=== PATIENT | male | born 1970 | race Caucasian/White ===

== ENCOUNTER 2017-03-09 12:51 | Inpatient (IN) | payer SELFPAY ==
[~2017-03-09] VITALS: Ht 167.6 cm; Wt 84.0 kg
[2017-03-09] VITALS (14 sets, daily range): BP systolic 98–138; BP diastolic 63–98; PULSE 69–95; RESP 12–22; Ht 167.6 cm; Wt 84.0 kg
[2017-03-09] MEDS ORDERED: SOD CHLORIDE 0.9% 1,000 ML IV STA (12:53)
[2017-03-09] MEDS ORDERED: ONDANSETRON 4 MG INJ IV STA (12:53)
[2017-03-09] MEDS ORDERED: morphine 4 MG/ML VIAL IV STA (12:53)
[2017-03-09] MEDS ORDERED: NITROGLYCERIN (IC) 100 MCG/ML INJ ONE (13:10)
[2017-03-09] MEDS ORDERED: VERAPAMIL 5 MG INJ ONE (13:10)
[2017-03-09] MEDS ORDERED: MIDAZOLAM 1 MG/ML 2 ML INJ ONE (13:10)
[2017-03-09] MEDS ORDERED: LIDOCAINE 1% (MDV) 20 ML INJ ONE (13:10)
[2017-03-09] MEDS ORDERED: FENTAnyl 50 MCG/ML VIAL ONE (13:10)
--- NOTE | 2017-03-09 13:14 | RADRPT ---
PROCEDURE: XR Chest. CLINICAL INDICATION: chest pain TECHNIQUE: Single frontal view of the chest was obtained COMPARISON: None FINDINGS: The heart and mediastinum are within normal limits. The lungs are clear. There is no pleural effusion or pneumothorax. RPTAT: AA IMPRESSION: No acute disease. .Alcides Starr MD, Date Time Electronically viewed and signed by .Alcides Starr MD, on 03/09/2017 13:13 .S/
[2017-03-09 13:15] LABS: BASOPHILS % 0.4 % (0.0-2.0); EOSINOPHILS # 0.1 10^3/ul (0.0-0.5); EOSINOPHILS % 0.6 % (0.0-7.0); HEMATOCRIT 41.5 % (42.0-52.0); HEMOGLOBIN 14.4 g/dl (14.0-18.0); LYMPHOCYTES # 2.6 10^3/ul (0.8-2.9); MEAN CORPUSCULAR HEMOGLOBIN 31.4 pg (29.0-33.0); MEAN CORPUSCULAR HGB CONC 34.7 g/dl (32.0-37.0); MEAN CORPUSCULAR VOLUME 90.4 fl (82.0-101.0); MEAN PLATELET VOLUME 10.6 fl (7.4-10.4); MONOCYTE # 0.5 10^3/ul (0.3-0.9); NEUTROPHILS % 64.3 % (39.0-77.0); PLATELET COUNT 237 10^3/UL (140-415); RED BLOOD COUNT 4.59 10^6/ul (4.70-6.10); RED CELL DISTRIBUTION WIDTH 13.5 % (11.5-14.5); WHITE BLOOD COUNT 9.1 10^3/ul (4.8-10.8)
[2017-03-09] MEDS ORDERED: BIVALIRUDIN 250MG /NS 50 ML 50 ML IVPB ONE (13:35)
[2017-03-09 13:36] LABS: ANION GAP 24 (8-16); BLOOD UREA NITROGEN 15 mg/dl (7-20); CALCIUM 9.4 mg/dl (8.4-10.2); CARBON DIOXIDE 24 mmol/L (21-31); CHLORIDE 101 mmol/L (97-110); CREATININE 0.95 mg/dl (0.61-1.24); GLUCOSE 178 mg/dl (70-220); POTASSIUM 3.4 mmol/L (3.5-5.1); SODIUM 146 mmol/L (135-144)
[2017-03-09] MEDS ORDERED: TICAGRELOR 90 MG TABLET ONE (13:50)
[2017-03-09 13:55] LABS: TROPONIN-I < 0.012 ng/ml (0.00-0.12)
--- NOTE | 2017-03-09 13:57 | ERA ---
ER Documentation Chief Complaint Date/Time DATE: 03/09/17 TIME: 13:54 Chief Complaint CP WITH STEM ON EKG HPI Patient is a 47-year-old male with hypertension and family history of coronary disease who presents with chest pain. A code STEMI was called from the field. He said the chest pain started 45 minutes ago. He is still having pain and it is left-sided chest pain. It is associated with shortness of breath. He was given aspirin nitroglycerin by paramedics. He was brought in by ambulance. He does not currently have a primary doctor. ROS All systems reviewed and are negative except as per history of present illness. PMhx/Soc History of Surgery: No Anesthesia Reaction: No Hx Neurological Disorder: No Hx Respiratory Disorders: No Hx Cardiac Disorders: Yes (HTN) Hx Psychiatric Problems: No Hx Miscellaneous Medical Probl: Yes (ARTHITIS) Hx Alcohol Use: No Hx Substance Use: No Hx Tobacco Use: Yes Smoking Status: Current every day smoker FmHx Family History: coronary disease Physical Exam Vitals Vital Signs Date Time Temp Pulse Resp B/P Pulse Ox O2 Delivery O2 Flow Rate FiO2 03/09/17 13:13 Nasal Cannula 2 03/09/17 12:55 99.0 110 22 185/93 99 Physical Exam Const: Mild distress Head: Atraumatic Eyes: Normal Conjunctiva ENT: Normal External Ears, Nose and Mouth. Neck: Full range of motion..~ No meningismus. Resp: Clear to auscultation bilaterally Cardio: Regular rate and rhythm, no murmurs Abd: Soft, non tender, non distended. Normal bowel sounds Skin: Pale and diaphoretic Back: No midline or flank tenderness Ext: No cyanosis, or edema Neur: Awake and alert Psych: Normal Mood and Affect Result Diagram: 03/09/17 1300 03/09/17 1300 Results 24 hrs Laboratory Tests Test 03/09/17 13:00 White Blood Count 9.110^3/ul Red Blood Count 4.5910^6/ul Hemoglobin 14.4g/dl Hematocrit 41.5% Mean Corpuscular Volume 90.4fl Mean Corpuscular Hemoglobin 31.4pg Mean Corpuscular Hemoglobin Concent 34.7g/dl Red Cell Distribution Width 13.5% Platelet Count 72743^3/UL Mean Platelet Volume 10.6fl Neutrophils % 64.3% Lymphocytes % 29.0% Monocytes % 5.0% Eosinophils % 0.6% Basophils % 0.4% Nucleated Red Blood Cells % 0.0/100WBC Neutrophils # (Manual) 5.910^3/ul Lymphocytes # 2.610^3/ul Monocytes # 0.510^3/ul Eosinophils # 0.110^3/ul Basophils # 0.010^3/ul Nucleated Red Blood Cells # 0.010^3/ul Sodium Level 146mmol/L Potassium Level 3.4mmol/L Chloride Level 101mmol/L Carbon Dioxide Level 24mmol/L Anion Gap 24 Blood Urea Nitrogen 15mg/dl Creatinine 0.95mg/dl Glucose Level 178mg/dl Calcium Level 9.4mg/dl Troponin I Pending Current Medications Medications (Trade) Dose Ordered Sig/[place] Route PRN Reason Start Time Stop Time Status Last Admin Dose Admin Sodium Chloride (NS) 1,000 ml @ 1,000 mls/hr Q1H STAT IV 03/09/17 12:53 03/09/17 13:52 DC 03/09/17 13:05 Morphine Sulfate (morphine) 4 mg ONCE STAT IV 03/09/17 12:53 03/09/17 12:54 DC Ondansetron HCl (Zofran Inj) 4 mg ONCE STAT IV 03/09/17 12:53 03/09/17 12:54 DC Lidocaine 20 ml 20 ml STK-MED ONCE .ROUTE 03/09/17 13:10 03/09/17 13:11 DC Heparin Sodium/ Sodium Chloride (Heparin 1000 Units/NS (A-Line)) 1,500 ml @ ud STK-MED ONCE .ROUTE 03/09/17 13:10 03/09/17 13:11 DC Fentanyl (Sublimaze) 100 mcg STK-MED ONCE .ROUTE 03/09/17 13:10 03/09/17 13:11 DC Midazolam HCl (Versed) 2 mg STK-MED ONCE .ROUTE 03/09/17 13:10 03/09/17 13:11 DC Verapamil HCl (Verapamil) 5 mg STK-MED ONCE .ROUTE 03/09/17 13:10 03/09/17 13:11 DC Nitroglycerin 1000 mcg 1,000 mcg STK-MED ONCE .ROUTE 03/09/17 13:10 03/09/17 13:11 DC Bivalirudin (Angiomax) 50 ml @ ud STK-MED ONCE IVPB 03/09/17 13:35 03/09/17 13:36 DC Ticagrelor (Brilinta) 90 mg STK-MED ONCE .ROUTE 03/09/17 13:50 03/09/17 13:51 DC Procedures/MDM EKG read by me: Rate/Rhythm: Regular rate and rhythm at a rate of 81 Intervals: Normal Impression: ST elevations across the precordial leads with hyperacute T waves consistent with STEMI Chest x-ray shows no pneumonia or pneumothorax per radiology. Patient is a 47-year-old male who presents with a code STEMI from the field. The patient had a code STEMI called at 12:35 PM. Unfortunately the paramedics did not transport the EKG to review. At 12:40 PM I spoke with Dr. Walton but the patient is still in the field at this time and I am not been able to review the EKG. At 12:48 PM the patient arrived to the ER. At 12:[address] Walton at the bedside and has decided to go to the cardiac Mrb Engineer with the patient. At 1 PM the patient was transferred to the cardiac Mrb Engineer. The patient was given aspirin nitroglycerin by paramedics and was given morphine and Zofran in the emergency department for pain. He will be admitted to the care of Dr. Scott from the panel team to the intensive care unit. Critical Care: Time: 35 minutes excluding all billable procedures. Treatments/Evaluations: Close monitoring and treatment of unstable vital signs, cardiorespiratory, and neurologic status, while maintaining tight balance of fluid, respiratory, and cardiac interventions. Departure Diagnosis: Primary Impression: ST elevation myocardial infarction (STEMI) Qualified Code: I21.3 - ST elevation myocardial infarction (STEMI), unspecified artery Condition: Critical ADALBERTO BHARDWAJ MD Mar 09, 2017 13:57
[2017-03-09] MEDS ORDERED: ASPIRIN 325 MG TAB ONE (14:02)
[2017-03-09] MEDS ORDERED: SOD CHLORIDE 0.9% 1,000 ML IV SCH (14:23)
--- NOTE | 2017-03-09 14:23 | SIPON ---
Date/Time of Note Date/Time of Note DATE: 03/09/17 TIME: 14:21 Operative Report Preoperative Diagnosis 1.STEMI Postoperative Diagnosis 1.obstructive cad s/p stent x 2 eith GUSTABO to LAD Operation/Procedure Performed 1.LHC 2.PTCA/stent x 2 to LAD Anesthesia Type: moderate sedation Estimated Blood Loss: minimal Transfusion Required: no Specimen: none Grafts/Implants: none Complications: no OSVALDO VERAS Mar 09, 2017 14:23
[2017-03-09] MEDS ORDERED: OXYCODONE/ACETAMINOPHEN (5/325) TAB PO PRN (14:30)
[2017-03-09] MEDS ORDERED: AL HYDROX/MG HYDROX/SIMETH 30 ML CUP PO PRN (14:30)
--- NOTE | 2017-03-09 15:34 | CONS ---
DATE OF ADMISSION: 03/09/2017 DATE OF CONSULTATION: 03/09/2017 REASON FOR CONSULTATION: Acute myocardial infarction. HISTORY OF PRESENT ILLNESS: Mr. Mckenzie is a 47-year-old male with history of hypertension, dyslipidemia, prior tobacco intake, who initially presented with complaints of substernal chest pain described as a pressure-like sensation while doing some work. The patient presents today with associated post shortness of breath and subsequently 911 was called. A STEMI was called en route. The patient's EKG was concerning for ST elevation OK. Upon arrival, the patient appears diaphoretic with ongoing chest pain and shortness of breath. The patient's EKG here is concerning for possible anterior OK with heart rate of 81. The patient has been treated with aspirin and has now been taken emergently to the cardiac garden labourer for left heart catheterization. PAST MEDICAL HISTORY: As above in HPI. MEDICATION: Unknown antihypertensive medication. ALLERGIES: NO KNOWN DRUG ALLERGIES. SOCIAL HISTORY: Remote tobacco, quit times most years. Social EtOH. No illicit drug use. FAMILY HISTORY: No history of sudden cardiac or early CAD. REVIEW OF SYSTEMS: As above in HPI. CONSTITUTIONAL: No fevers or chills. RESPIRATORY: Shortness of breath. CARDIOVASCULAR: Chest pain. GASTROINTESTINAL: No vomiting. GENITOURINARY: No hematuria. MUSCULOSKELETAL: Degenerative joint disease. PSYCH: The patient has depression. NEUROLOGIC: No CVA. ENDOCRINE: No PHYSICAL EXAMINATION: VITAL SIGNS: Blood pressure 141/96, afebrile, pulse is 78, satting 98 percent. GENERAL: The patient is alert, awake, complaining of shortness of breath and chest pain. NECK: JVP approximately 9 cm of water. LUNGS: Fair air movement throughout. HEART: Regular rate and rhythm. Normal S1, S2. A 1/6 systolic murmur. Nondisplaced PMI. ABDOMEN: Positive bowel sounds. Soft. EXTREMITIES: No edema, 1+ pulses bilateral posterior. LABORATORY: Labs are pending at time of dictation. Imaging has just taken and results are pending at the time of dictation. ECG is stated as above. IMPRESSION: 1. Acute ST-elevation myocardial infarction. 2. Chest pain. 3. Hypertension. 4. Dyslipidemia. 5. Remote tobacco. RECOMMENDATIONS: 1. The patient has been treated with aspirin. 2. Patient will undergo left heart catheterization with possible PTCA and stent placement with further recommendations made at the completion of this emergent study. Dictated By: Elmer Walton MD /tyron/ingrid /Document#: [id number] CC: Juan Amaya MD;*[facility]*
[2017-03-09] MEDS ORDERED: POTASSIUM CHLORIDE (SR) 20 MEQ TAB PO STA (16:12)
--- NOTE | 2017-03-09 17:14 | RADRPT ---
Vent Rate: 73 bpm RR Interval: 0 msec MS Interval: 144 msec QRS Duration: 96 msec QT Interval: 400 msec QTC Interval: 440 msec P-R-T Mastic: 59 - -26 - 47 degrees Normal sinus rhythm Septal infarct , age undetermined Abnormal ECG Electronically Signed By: Douglas Gustafson [id number]
[2017-03-09] MEDS ORDERED: NACL 0.9% 3 ML SYG IV SCH (17:30)
[2017-03-09] MEDS ORDERED: ALBUTEROL/IPRATROPIUM (NEB) 3 ML AMP HHN PRN (17:30)
[2017-03-09] MEDS ORDERED: LORAZEPAM 0.5 MG TAB PO PRN (17:30)
[2017-03-09] MEDS ORDERED: ACETAMINOPHEN 325 MG TAB PO PRN (17:30)
[2017-03-09] MEDS ORDERED: MAGNESIUM HYDROXIDE 30ML CUP PO PRN (17:30)
[2017-03-09] MEDS ORDERED: DOCUSATE SODIUM 100 MG CAP PO PRN (17:30)
[2017-03-09] MEDS ORDERED: hydrALAzine 20 MG INJ IV PRN (17:30)
[2017-03-09] MEDS ORDERED: NA PHOSPHATE/BIPHOS 133 ML ENEMA PR PRN (17:30)
[2017-03-09] MEDS ORDERED: ONDANSETRON 4 MG INJ IV PRN ×2 (17:30)
[2017-03-09] MEDS: NITROGLYCERIN (SL) 0.4 MG TAB SL PRN ×2 (17:54→18:27)
--- NOTE | 2017-03-09 18:24 | CARRPT ---
DATE OF PROCEDURE: 03/09/2017 TYPE OF PROCEDURES: 1. Left heart catheterization. 2. Coronary angiography. 3. Percutaneous transluminal coronary angioplasty with placement of [place] drug-eluting stents times 2. Two ostial proximal LAD 3.0 x 22 mm and 3.0 x 12 mm. ATTENDING PHYSICIAN: Dr. Elmer Walton. REFERRING PHYSICIAN: Dr. Amaya, Emergency Department. INDICATION: ST elevation myocardial infarction. ANESTHESIA: Conscious and local. BRIEF HISTORY AND HOSPITAL COURSE: Mr. Mckenzie is a 47-year-old male, with history of hypertension, dyslipidemia, who initially had complaints of substernal chest pain while working. The patient underwent EKG revealing hyperacute peaked T-waves in the anterolateral precordial leads. Subsequent to these findings, the patient was given aspirin and brought to the cardiac cath laboratory in order to undergo left heart catheterization. He has possibility of significant obstructive coronary disease leading to subsequent chest pain and ST-elevation myocardial infarction. PROCEDURE: After informed consent was obtained the patient brought to the [facility] Cardiac Staff Trainer where his right radial area was prepped and draped in the usual sterile fashion. 2 percent lidocaine was infiltrated into the right radial area in order to achieve adequate local anesthesia. Using the modified Seldinger technique, the radial artery was cannulated and a 6-Thai arterial sheath was placed. A 6-Thai JR4 catheter was used to cath to the right coronary artery to ostium with contrast injection. We also used the right coronary artery system to obtain. The JR 4 was removed over the guidewire and a 6-Thai XD LAD guide was used to cath the left main coronary ostium with contrast injection, multiple views left coronary arterial system were obtained. At this time findings of 100 percent occlusion of the patient's proximal ostial LAD we moved directly into instrument procedure. The patient was given Angiomax bolus continues infusion in addition to the radial cocktail he received a 2.5 mg of verapamil and 200 of nitroglycerin. Subsequent at this time a 0.014 balanced middleweight guidewire was passed distal to the lesion in the LAD. The lesion was treated with a 2.5 x 12 mm balloon up to 14 atmospheres. Restoring DORINDA-3 flow and the lesion was then stented with a 3.0 x 22 mm drug-eluting stent placed at the ostium extending back into the lesion and post dilated with stent reaching to 18 atmospheres x2. Subsequently, a second stent was then added just distal to this, 1-2 mm overlap at 3.0 x 12 mm. It was once again deployed at 18 atmospheres times 2. The stent overlap zone was then post dilated at 18 atmospheres and the stent delivery balloon was removed. Followup angiograms obtained after deployment of both stents revealing now DORINDA-3 flow throughout the vessel. No signs of complication including perforation or dissection. Additionally, it he has noticed that there was a diagonal that bifurcated midway through the stent that had a 90 percent lesion that we had wired prior to this and did balloon angioplasty with a 2. 0 x 12 mm balloon. Improving the size of it and this did remain patent after stenting. Subsequently at this time the interventional guidewires removed and interventional guide and 6-Thai pigtail was passed down the ascending aorta, left ventricular end-diastolic pressure was measured and pullback across the aortic valve to assess for significant gradient, which there was not. Subsequently completed the procedure. There were no known complications. FINDINGS: 1. Core angiography, right coronary artery proximally is a 3.5 mm vessel has a proximal 30 percent stenosis. Mid body there is a 30 percent stenosis. The remainder of the right coronary artery is free of significant focal stenosis, dominant vessel, and gives off a 2 mm PDA and a 3.5 mm posterolateral branch had several daughter branch with mild irregularities up to 30 percent. The patient's left main 4 mm, circumflex with no stenosis. Circumflex proximally is a 3 mm vessel has an ostial 30 to 40 percent stenosis. The remainder of the circ is free of significant focal stenosis. There is a mid branching obtuse marginal 3 mm vessel with no significant focal stenosis and a distal branching obtuse marginal 2.5 mm with no significant focal stenosis. The circumflex appears to be a codominant vessel and therefore gives off a small left-sided PDA 2 mm with no significant focal stenosis. The patient's LAD is a 3 mm vessel and shortly after its takeoff is 100 percent occluded. Prior to PTCA and stent placement the patient has had 100 percent occlusion of the proximal ostial LAD. Post PTCA and stent placement the patient had no evidence of occlusion. DORINDA 3 flow throughout the vessel. No signs of complication including perforation or dissection. It should be noted that there is a diagonal that bifurcates to the very proximal portion LAD that throughout the procedure had a 90 percent stenosis and underwent PTCA and stent placement with restenosis of approximately 50 percent post stent and the patient did have plaque shift but this vessel continued to remain widely patent. 2. PTCA and stent placement prior to PTCA in the diagonal. The patient had also 89 percent stenosis, post PTCA placement residual 34 percent stenosis after stenting. Patient did suffer plaque shift in the residual approximately 60 to 70 percent stenosis, but excellent flow throughout the vessel. TOTAL FLUOROSCOPY TIME: 15.3 minutes. TOTAL CONTRAST: 200 cc. IMPRESSION: 1. Single-vessel obstructive coronary disease involving 100 percent occlusion of the patient's proximal ostial left anteriora descending (LAD) status post successful percutaneous transluminal coronary angioplasty (PTCA) and stent placement times 2 with drug- eluting stents. 2. Elevated left heart filling pressures, 23/24. No left ventricular (LV) gradient due to elevated left ventricular developed pressure (LVDP). 3. No significant stenosis or gradient. RECOMMENDATIONS: In light of procedure and findings at time would: 1. Maintain patient on aspirin 81 mg 1 tab p.o. daily indefinitely. 2. Brilinta 90 mg 1 tab p.o. b.i.d. times least 1 year. 3. management. 4. Aggressive risk factor reduction. 5. Patient will be admitted to the ICU for post procedure and managing symptoms. ADDENDUM: The patient received Brilinta 180 mg x 1 and aspirin 325 mg x1 at the conclusion of the procedure. Dictated By: Elmer Walton MD /tyron/mayo /Document#: [id number]
--- NOTE | 2017-03-09 18:33 | HP ---
Date/Time of Note Date/Time of Note DATE: 03/09/17 TIME: 17:54 Assessment/Plan VTE Prophylaxis VTE Prophylaxis Intervention: heparin Lines/Catheters IV Catheter Type (from Nrs): Peripheral IV Assessment/Plan Chief Complaint/Hosp Course Assessment and plan: 47-year-old male coming in with chest pain and ST elevation MD, status post left heart cath with 2 drug-eluting stents to the LAD 1. ST elevation MD: Again status post 2 drug-eluting stent placement to LAD blockage. -Follow-up post cath recommendations, new aspirin and Brilinta, high-dose statin, follow-up cardiology recommendations. Pain control and nausea control with medicines and antiemetics. 2. HTN: See #1, continue current cardiac medications 3. Smoking history: Counseled on cessation 4. Cholesterol: Continue statin Critical care time spent on patient care today 45 minutes Problems: HPI/ROS Admit Date/Time Admit Date/Time Mar 09, 2017 at 13:15 Hx of Present Illness 47-year-old male past medical history of hypertension, dyslipidemia, prior tobacco intake, who initially presented with complaints of substernal chest pain described as a pressure-like sensation while doing some work earlier today. The patient presents today with associated post shortness of breath and subsequently 911 was called. Stated the pain was substernal in nature, radiated to the left arm, increasing in severity. Patient decided to call 911, and a STEMI was called en route. The patient's EKG was concerning for ST elevation MD. Upon arrival, the patient appears diaphoretic with ongoing chest pain and shortness of breath. EKG performed in the ER was concerning for possible anterior MD with heart rate of 81. The patient received aspirin and take emergently to the cardiac industrial laborer for left heart catheterization. 2 cardiac stents were placed to the LAD, and now patient is in the intensive care unit recovering. PMH/Family/Social Past Surgical History Past Surgical Hx: no surgical history Family History Significant Family History: other (Mother had bypass surgery, smoker, diabetes) Social History Alcohol Use: none Smoking Status: Former smoker Exam/Review of Systems Vital Signs Vitals Vital Signs Date Time Temp Pulse Resp B/P Pulse Ox O2 Delivery O2 Flow Rate FiO2 03/09/17 17:30 75 15 120/86 100 Room Air 03/09/17 16:00 97.8 03/09/17 13:13 2 Exam Exam GENERAL: The patient is alert, awake, complaining of shortness of breath and chest pain. HEENT: Pupils equal round reactive to light extraocular muscles intact NECK: Supple LUNGS: Clear to auscultation bilaterally HEART: Regular rate and rhythm. Normal S1, S2. A 1/6 systolic murmur. Nondisplaced PMI. ABDOMEN: Positive bowel sounds. Soft. EXTREMITIES: No edema, 1+ pulses bilateral posterior. Neuro: No focal deficits Labs Result Diagram: 03/09/17 1300 03/09/17 1300 Medications Medications Current Medications Aspirin (Halfprin) 81 mg DAILY PO ; Start 03/10/17 at 09:00 Ticagrelor (Brilinta) 90 mg BID PO ; Start 03/09/17 at 21:00 Acetaminophen (Tylenol Tab) 650 mg Q4H PRN PO NON-CARDIAC PAIN LEVEL 1-3; Start 03/09/17 at 14:30 Oxycodone/ Acetaminophen (Percocet (5/ 325)) 1 tab Q4H PRN PO REPORTED NON- CARDIAC PAIN 4-7; Start 03/09/17 at 14:30 Al Hydrox/Mg Hydrox/ Simethicone 30 ml 30 ml Q4H PRN PO GASTROINTESTINAL UPSET ; Start 03/09/17 at 14:30 Sodium Chloride (NS) 1,000 ml @ 75 mls/hr [id number] IV Last administered on 03/09t 15:39; Admin Dose 75 MLS/HR; Start 03/09/17 at 14:23; Stop 03/10/17 at 03: 42 Ondansetron HCl (Zofran Inj) 4 mg Q6H PRN IV NAUSEA AND/OR VOMITING Last administered on 03/09/17t 17:20; Admin Dose 4 MG; Start 03/09/17 at 17:30 Ondansetron HCl (Zofran Inj) 4 mg Q6H PRN IV NAUSEA AND/OR VOMITING; Start at 17:30 Acetaminophen (Tylenol Tab) 650 mg Q6H PRN PO PAIN LEVEL 1-3 OR FEVER; Start at 17:30 Acetaminophen/ Hydrocodone Bitart (Eden (5/325)) 1 tab Q6H PRN PO MODERATE PAIN LEVEL 4-6; Start 03/09/17 at 17:30 Morphine Sulfate (morphine) 2 mg Q4H PRN IV SEVERE PAIN LEVEL 7-10; Start 03/09 at 17:30 Docusate Sodium (Colace) 100 mg Q12H PRN PO CONSTIPATION; Start 03/09/17 at 17: 30 Magnesium Hydroxide (Milk Of Mag) 30 ml DAILY PRN PO CONSTIPATION; Start at 17:30 Sodium Biphosphate/ Sodium Phosphate (Fleet Enema) 133 ml DAILY PRN PA CONSTIPATION; Start 03/09/17 at 17:30 Heparin Sodium (Porcine) (Heparin (5000 Units/0.5 ml)) 5,000 unit Q12 SC ; Start 03/09/17 at 21:00 Lorazepam (Ativan) 0.5 mg Q6H PRN PO ANXIETY; Start 03/09/17 at 17:30 Hydralazine HCl (Apresoline) 10 mg Q6H PRN IV ELEVATED BLOOD PRESSURE; Start at 17:30 Nitroglycerin (Nitroglycerin (Sl Tab) 0.4 Mg) 1 tab Q5M PRN SL ANGINA; Start at 17:30 ANTWON FUCHS Mar 09, 2017 18:05
[2017-03-09] MEDS: HYDROCODONE/APAP (5/325) TAB PO PRN (19:48)
[2017-03-09] MEDS: HEPARIN 5,000 UNIT/0.5 ML VIAL SC SCH (21:02)
[2017-03-09] MEDS: TICAGRELOR 90 MG TABLET PO SCH (21:03)
[2017-03-09] MEDS: morphine 2 MG INJ IV PRN (21:11)
[2017-03-10] VITALS (43 sets, daily range): BP systolic 91–142; BP diastolic 66–114; PULSE 88–133; RESP 12–35
[2017-03-10] MEDS: morphine 2 MG INJ IV PRN (06:55)
[2017-03-10] MEDS: ASPIRIN (EC) 81 MG TAB PO SCH (08:15)
[2017-03-10] MEDS: TICAGRELOR 90 MG TABLET PO SCH ×2 (08:16→21:13)
[2017-03-10] MEDS: HEPARIN 5,000 UNIT/0.5 ML VIAL SC SCH ×2 (08:19→21:27)
--- NOTE | 2017-03-10 10:10 | PN ---
Date/Time of Note Date/Time of Note DATE: 03/10/17 TIME: 10:08 Assessment/Plan VTE Prophylaxis VTE Prophylaxis Intervention: heparin Lines/Catheters IV Catheter Type (from Nrs): Peripheral IV Assessment/Plan Chief Complaint/Hosp Course Assessment and plan: 47-year-old male coming in with chest pain and ST elevation DC, status post left heart cath with 2 drug-eluting stents to the LAD. 1. ST elevation DC: Again status post 2 drug-eluting stent placement to LAD blockage. Denies chest pain presently, but having some mild tachycardia -Follow-up post cath recommendations, new aspirin and Brilinta, high-dose statin, follow-up cardiology recommendations. Pain control and nausea control with medicines and antiemetics. -Check blood ethanol level 2. HTN: See #1, continue current cardiac medications 3. Smoking history: Counseled on cessation 4. Cholesterol: Continue statin Critical care time spent on patient care today 40 minutes Problems: Subjective 24 Hr Interval Summary Free Text/Dictation No acute events overnight, denies chest pain. Exam/Review of Systems Vital Signs Vitals Vital Signs Date Time Temp Pulse Resp B/P Pulse Ox O2 Delivery O2 Flow Rate FiO2 03/10/17 08:00 108 17 124/98 96 Room Air 03/10/17 07:30 98.5 03/10/17 02:51 21 03/09/17 13:13 2 Intake and Output 03/09/17 03/09/17 03/10/17 15:00 23:00 07:00 Intake Total 240 ml 885 ml 495 ml Output Total 250 ml 575 ml Balance 240 ml 635 ml -80 ml Exam GENERAL: The patient is alert, awake, no acute distress. HEENT: Pupils equal round reactive to light extraocular muscles intact NECK: Supple LUNGS: Clear to auscultation bilaterally HEART: Regular rate and rhythm. Normal S1,S2 ABDOMEN: Positive bowel sounds. Soft. EXTREMITIES: No edema, 1+ pulses bilateral posterior. Neuro: No focal deficits Results Result Diagram: 03/09/17 1300 03/09/17 1300 Results 24 hrs Laboratory Tests Test 03/09/17 13:00 03/09/17 19:39 03/10/17 01:02 White Blood Count 9.1 Red Blood Count 4.59 L Hemoglobin 14.4 Hematocrit 41.5 L Mean Corpuscular Volume 90.4 Mean Corpuscular Hemoglobin 31.4 Mean Corpuscular Hemoglobin Concent 34.7 Red Cell Distribution Width 13.5 Platelet Count 237 Mean Platelet Volume 10.6 H Neutrophils % 64.3 Lymphocytes % 29.0 Monocytes % 5.0 Eosinophils % 0.6 Basophils % 0.4 Nucleated Red Blood Cells % 0.0 Neutrophils # (Manual) 5.9 Lymphocytes # 2.6 Monocytes # 0.5 Eosinophils # 0.1 Basophils # 0.0 Nucleated Red Blood Cells # 0.0 Sodium Level 146 H Potassium Level 3.4 L Chloride Level 101 Carbon Dioxide Level 24 Anion Gap 24 H Blood Urea Nitrogen 15 Creatinine 0.95 Glucose Level 178 Calcium Level 9.4 Troponin I < 0.012 281.000 *H 219.000 *H Free Thyroxine 1.03 Creatine Kinase 5914 H Creatine Kinase Index 2.5 2.1 Creatinine Kinase MB (Mass) 188.00 H 124.00 H Medications Medications Current Medications Aspirin (Halfprin) 81 mg DAILY PO Last administered on 03/10/17 08:15; Admin Dose 81 MG; Start 03/10/17 at 09:00 Ticagrelor (Brilinta) 90 mg BID PO Last administered on 03/10/17 08:16; Admin Dose 90 MG; Start 03/09/17 at 21:00 Acetaminophen (Tylenol Tab) 650 mg Q4H PRN PO NON-CARDIAC PAIN LEVEL 1-3; Start 03/09/17 at 14:30 Oxycodone/ Acetaminophen (Percocet (5/ 325)) 1 tab Q4H PRN PO REPORTED NON- CARDIAC PAIN 4-7; Start 03/09/17 at 14:30 Al Hydrox/Mg Hydrox/Simethicone (Mag-Al Plus) 30 ml Q4H PRN PO GASTROINTESTINAL UPSET; Start 03/09/17 at 14:30 Ondansetron HCl (Zofran Inj) 4 mg Q6H PRN IV NAUSEA AND/OR VOMITING Last administered on 03/09/17 17:20; Admin Dose 4 MG; Start 03/09/17 at 17:30 Ondansetron HCl (Zofran Inj) 4 mg Q6H PRN IV NAUSEA AND/OR VOMITING; Start at 17:30 Acetaminophen (Tylenol Tab) 650 mg Q6H PRN PO PAIN LEVEL 1-3 OR FEVER; Start at 17:30 Acetaminophen/ Hydrocodone Bitart ([place] (5/325)) 1 tab Q6H PRN PO MODERATE PAIN LEVEL 4-6 Last administered on 03/09/17 19:48; Admin Dose 1 TAB; Start at 17:30 Morphine Sulfate (morphine) 2 mg Q4H PRN IV SEVERE PAIN LEVEL 7-10 Last administered on 03/10/17 06:55; Admin Dose 2 MG; Start 03/09/17 at 17:30 Docusate Sodium (Colace) 100 mg Q12H PRN PO CONSTIPATION; Start 03/09/17 at 17: 30 Magnesium Hydroxide (Milk Of Mag) 30 ml DAILY PRN PO CONSTIPATION; Start at 17:30 Sodium Biphosphate/ Sodium Phosphate (Fleet Enema) 133 ml DAILY PRN [place] CONSTIPATION; Start 03/09/17 at 17:30 Heparin Sodium (Porcine) (Heparin (5000 Units/0.5 ml)) 5,000 unit Q12 SC Last administered on 03/10/17 08:19; Admin Dose 5,000 UNIT; Start 03/09/17 at 21:00 Lorazepam (Ativan) 0.5 mg Q6H PRN PO ANXIETY; Start 03/09/17 at 17:30 Hydralazine HCl (Apresoline) 10 mg Q6H PRN IV ELEVATED BLOOD PRESSURE; Start at 17:30 Nitroglycerin (Nitroglycerin (Sl Tab) 0.4 Mg) 1 tab Q5M PRN SL ANGINA Last administered on 03/09/17 18:27; Admin Dose 1 TAB; Start 03/09/17 at 17:30 ANTWON FUCHS Mar 10, 2017 10:10
[2017-03-10 11:45] LABS: BASOPHILS % 0.3 % (0.0-2.0); EOSINOPHILS % 0.2 % (0.0-7.0); HEMATOCRIT 42.3 % (42.0-52.0); HEMOGLOBIN 14.6 g/dl (14.0-18.0); LYMPHOCYTES # 1.1 10^3/ul (0.8-2.9); MEAN CORPUSCULAR HEMOGLOBIN 31.7 pg (29.0-33.0); MEAN CORPUSCULAR HGB CONC 34.5 g/dl (32.0-37.0); MEAN CORPUSCULAR VOLUME 91.8 fl (82.0-101.0); MEAN PLATELET VOLUME 10.1 fl (7.4-10.4); MONOCYTE # 0.7 10^3/ul (0.3-0.9); MONOCYTES % 7.1 % (0.0-11.0); NEUTROPHILS % 80.7 % (39.0-77.0); PLATELET COUNT 200 10^3/UL (140-415); RED BLOOD COUNT 4.61 10^6/ul (4.70-6.10); RED CELL DISTRIBUTION WIDTH 13.9 % (11.5-14.5); WHITE BLOOD COUNT 10.2 10^3/ul (4.8-10.8)
[2017-03-10 12:12] LABS: CHOL/HDL RATIO 5.7 RATIO; MAGNESIUM 1.9 mg/dl (1.7-2.5); PHOSPHORUS 2.5 mg/dl (2.5-4.9)
[2017-03-10 12:13] LABS: CALCIUM 9.3 mg/dl (8.4-10.2); CREATININE 0.86 mg/dl (0.61-1.24); POTASSIUM 3.5 mmol/L (3.5-5.1)
--- NOTE | 2017-03-10 12:14 | CONS ---
Date/Time of Note Date/Time of Note DATE: 03/10/17 TIME: 12:11 Assessment/Plan Assessment/Plan Chief Complaint/Hosp Course IMPRESSION: 1. Acute ST-elevation myocardial infarction s/p PTCA/stent x 2 to ostal/ proximal LAD with GUSTABO 2. Chest pain. 3. Hypertension. 4. Dyslipidemia. 5. Remote tobacco. 6. Tachuycardia-S tach REcc: -Tele transfer ok -Trend cardiac enzymes -Continue asa/brilinta and will need script at D/C -start BB -start statain -Will F/U echo Problems: Consultation Date/Type/Reason Admit Date/Time Mar 09, 2017 at 13:15 Initial Consult Date 03/09/2017 Type of Consultation: cardiology Reason for Consultation STEMI Referring Provider: ANTWON FUCHS Exam/Review of Systems Vital Signs Vitals Vital Signs Date Time Temp Pulse Resp B/P Pulse Ox O2 Delivery O2 Flow Rate FiO2 03/10/17 08:00 108 03/10/17 08:00 17 124/98 96 Room Air 03/10/17 07:30 98.5 03/10/17 02:51 21 03/09/17 13:13 2 Intake and Output 03/09/17 03/09/17 03/10/17 14:59 22:59 06:59 Intake Total 1050 ml 570 ml Output Total 250 ml 575 ml Balance 800 ml -5 ml Exam Review of Systems: CONSTITUTIONAL: No fevers, chills. PULMONARY: No sob CARDIOVASCULAR: mild chest pain with deep inspiration GASTROINTESTINAL: No nausea/vomiting. GENITOURINARY: No hematuria/dysuria. MUSCULOSKELETAL: No myagias/arthalgias. PSYCHIATRIC: The patient denies depression. NEUROLOGIC: No weakness Constitutional: alert, oriented, well developed Head: normocephalic ENMT: mucosa pink and moist Neck: jvd (8-9 cm water), supple Respiratory: clear to auscultation Cardiovascular: regular rate and rhythm Gastrointestinal: non-tender, soft Musculoskeletal: muscle tone (normal) Extremities: edema (none) Neurological: other (No focal deficits) Results Result Diagram: 03/10/17 1130 03/09/17 1300 Results 24 hrs Laboratory Tests Test 03/09/17 13:00 03/09/17 19:39 03/10/17 01:02 03/10/17 11:30 White Blood Count 9.1 10.2 Red Blood Count 4.59 L 4.61 L Hemoglobin 14.4 14.6 Hematocrit 41.5 L 42.3 Mean Corpuscular Volume 90.4 91.8 Mean Corpuscular Hemoglobin 31.4 31.7 Mean Corpuscular Hemoglobin Concent 34.7 34.5 Red Cell Distribution Width 13.5 13.9 Platelet Count 237 200 Mean Platelet Volume 10.6 H 10.1 Neutrophils % 64.3 80.7 H Lymphocytes % 29.0 11.0 L Monocytes % 5.0 7.1 Eosinophils % 0.6 0.2 Basophils % 0.4 0.3 Nucleated Red Blood Cells % 0.0 0.0 Neutrophils # (Manual) 5.9 8.2 H Lymphocytes # 2.6 1.1 Monocytes # 0.5 0.7 Eosinophils # 0.1 0.0 Basophils # 0.0 0.0 Nucleated Red Blood Cells # 0.0 0.0 Sodium Level 146 H Potassium Level 3.4 L Chloride Level 101 Carbon Dioxide Level 24 Anion Gap 24 H Blood Urea Nitrogen 15 Creatinine 0.95 Glucose Level 178 Calcium Level 9.4 Troponin I < 0.012 281.000 *H 219.000 *H Free Thyroxine 1.03 Creatine Kinase 5914 H Creatine Kinase Index 2.5 2.1 Creatinine Kinase MB (Mass) 188.00 H 124.00 H Hemoglobin A1c 6.0 H Medications Medications Current Medications Aspirin (Halfprin) 81 mg DAILY PO Last administered on 03/10/17 08:15; Admin Dose 81 MG; Start 03/10/17 at 09:00 Ticagrelor (Brilinta) 90 mg BID PO Last administered on 03/10/17 08:16; Admin Dose 90 MG; Start 03/09/17 at 21:00 Acetaminophen (Tylenol Tab) 650 mg Q4H PRN PO NON-CARDIAC PAIN LEVEL 1-3; Start 03/09/17 at 14:30 Oxycodone/ Acetaminophen (Percocet (5/ 325)) 1 tab Q4H PRN PO REPORTED NON- CARDIAC PAIN 4-7; Start 03/09/17 at 14:30 Al Hydrox/Mg Hydrox/Simethicone (Mag-Al Plus) 30 ml Q4H PRN PO GASTROINTESTINAL UPSET; Start 03/09/17 at 14:30 Ondansetron HCl (Zofran Inj) 4 mg Q6H PRN IV NAUSEA AND/OR VOMITING Last administered on 03/09/17 17:20; Admin Dose 4 MG; Start 03/09/17 at 17:30 Ondansetron HCl (Zofran Inj) 4 mg Q6H PRN IV NAUSEA AND/OR VOMITING; Start at 17:30 Acetaminophen (Tylenol Tab) 650 mg Q6H PRN PO PAIN LEVEL 1-3 OR FEVER; Start at 17:30 Acetaminophen/ Hydrocodone Bitart ([place] (5/325)) 1 tab Q6H PRN PO MODERATE PAIN LEVEL 4-6 Last administered on 03/09/17 19:48; Admin Dose 1 TAB; Start at 17:30 Morphine Sulfate (morphine) 2 mg Q4H PRN IV SEVERE PAIN LEVEL 7-10 Last administered on 03/10/17 06:55; Admin Dose 2 MG; Start 03/09/17 at 17:30 Docusate Sodium (Colace) 100 mg Q12H PRN PO CONSTIPATION; Start 03/09/17 at 17: 30 Magnesium Hydroxide (Milk Of Mag) 30 ml DAILY PRN PO CONSTIPATION; Start at 17:30 Sodium Biphosphate/ Sodium Phosphate (Fleet Enema) 133 ml DAILY PRN [place] CONSTIPATION; Start 03/09/17 at 17:30 Heparin Sodium (Porcine) (Heparin (5000 Units/0.5 ml)) 5,000 unit Q12 SC Last administered on 03/10/17 08:19; Admin Dose 5,000 UNIT; Start 03/09/17 at 21:00 Lorazepam (Ativan) 0.5 mg Q6H PRN PO ANXIETY; Start 03/09/17 at 17:30 Hydralazine HCl (Apresoline) 10 mg Q6H PRN IV ELEVATED BLOOD PRESSURE; Start at 17:30 Nitroglycerin (Nitroglycerin (Sl Tab) 0.4 Mg) 1 tab Q5M PRN SL ANGINA Last administered on 03/09/17 18:27; Admin Dose 1 TAB; Start 03/09/17 at 17:30 OSVALDO VERAS Mar 10, 2017 12:14
[2017-03-10] MEDS: METOPROLOL 25 MG TAB PO SCH ×2 (12:30→21:14)
[2017-03-10 12:43] LABS: THYROID STIMULATING HORMONE 0.628 MIU/L (0.465-4.680)
[2017-03-10 12:47] LABS: CK-MB 45.3 ng/ml (0.0-2.4); TROPONIN-I 92.3 ng/ml (0.00-0.12)
--- NOTE | 2017-03-10 15:37 | RADRPT ---
Vent Rate: 110 bpm RR Interval: 0 msec [place] Interval: 138 msec QRS Duration: 102 msec QT Interval: 360 msec QTC Interval: 487 msec P-R-T [place]: 44 - -26 - 76 degrees Sinus tachycardia Anteroseptal infarct , possibly acute ACUTE [place] Abnormal ECG Electronically Signed By: Douglas Gustafson [id number]
[2017-03-10] MEDS: ATORVASTATIN 80 MG TAB PO SCH (21:12)
[2017-03-10] MEDS: ACETAMINOPHEN 325 MG TAB PO PRN (21:17)
[2017-03-11] VITALS (53 sets, daily range): BP systolic 86–130; BP diastolic 65–99; PULSE 100–129; RESP 11–32
[2017-03-11 05:58] LABS: BASOPHIL # 0.1 10^3/ul (0.0-0.1); BASOPHILS % 0.5 % (0.0-2.0); EOSINOPHILS # 0.1 10^3/ul (0.0-0.5); EOSINOPHILS % 0.5 % (0.0-7.0); HEMOGLOBIN 14.8 g/dl (14.0-18.0); LYMPHOCYTES # 1.6 10^3/ul (0.8-2.9); LYMPHOCYTES % 16.9 % (15.0-51.0); MEAN CORPUSCULAR HEMOGLOBIN 31.3 pg (29.0-33.0); MEAN CORPUSCULAR HGB CONC 34.4 g/dl (32.0-37.0); MEAN CORPUSCULAR VOLUME 90.9 fl (82.0-101.0); MEAN PLATELET VOLUME 10.2 fl (7.4-10.4); MONOCYTE # 1.1 10^3/ul (0.3-0.9); MONOCYTES % 11.4 % (0.0-11.0); NEUTROPHILS % 70.2 % (39.0-77.0); PLATELET COUNT 198 10^3/UL (140-415); RED BLOOD COUNT 4.73 10^6/ul (4.70-6.10); RED CELL DISTRIBUTION WIDTH 13.5 % (11.5-14.5); WHITE BLOOD COUNT 9.6 10^3/ul (4.8-10.8)
[2017-03-11 06:25] LABS: CREATININE 0.85 mg/dl (0.61-1.24); POTASSIUM 3.2 mmol/L (3.5-5.1)
[2017-03-11 06:45] LABS: CK-MB 6.58 ng/ml (0.0-2.4); TROPONIN-I 34.8 ng/ml (0.00-0.12)
[2017-03-11] MEDS: METOPROLOL 25 MG TAB PO SCH ×2 (08:24→17:54)
[2017-03-11] MEDS: ASPIRIN (EC) 81 MG TAB PO SCH (08:24)
[2017-03-11] MEDS: TICAGRELOR 90 MG TABLET PO SCH ×2 (08:26→21:08)
[2017-03-11] MEDS: HEPARIN 5,000 UNIT/0.5 ML VIAL SC SCH ×2 (08:29→21:09)
--- NOTE | 2017-03-11 09:41 | RADRPT ---
Vent Rate: 113 bpm RR Interval: 0 msec NM Interval: 136 msec QRS Duration: 94 msec QT Interval: 358 msec QTC Interval: 491 msec P-R-T [place]: 56 - -29 - 100 degrees Sinus tachycardia Possible Left atrial enlargement Anteroseptal infarct , possibly acute Inferior injury pattern ACUTE [place] Abnormal ECG Electronically Signed By: Jak Valle [id number]
--- NOTE | 2017-03-11 10:36 | PN ---
Date/Time of Note Date/Time of Note DATE: 03/11/17 TIME: 10:33 Assessment/Plan VTE Prophylaxis VTE Prophylaxis Intervention: heparin Lines/Catheters IV C[facility]ter Type (from [facility]): Peripheral IV Urinary Cath still in place: No Assessment/Plan Chief Complaint/Hosp Course Assessment and plan: 47-year-old male coming in with chest pain and ST elevation NM, status post left heart cath with 2 drug-eluting stents to the LAD. 1. ST elevation NM: Again status post 2 drug-eluting stent placement to LAD blockage. Denies chest pain presently, but still having some mild tachycardia, on BB. -Follow-up post cath recommendations, new aspirin and Brilinta, high-dose statin, follow-up cardiology recommendations. - Pain control and nausea control with medicines and antiemetics. -continue current CV meds - replete low electrolytes 2. HTN: See #1, continue current cardiac medications 3. Smoking history: Counseled on cessation 4. Cholesterol: Continue statin Critical care time spent on patient care today 45 minutes Problems: Subjective 24 Hr Interval Summary Free Text/Dictation Pt had no acute events overnight, but still with tachycardia. Exam/Review of Systems Vital Signs Vitals Vital Signs Date Time Temp Pulse Resp B/P Pulse Ox O2 Delivery O2 Flow Rate FiO2 03/11/17 09:00 115 26 105/87 97 03/11/17 08:00 98.9 03/10/17 18:12 21 03/10/17 12:00 Room Air 03/09/17 13:13 2 Intake and Output 03/10/17 03/10/17 03/11/17 15:00 23:00 07:00 Intake Total 1050 ml 760 ml 200 ml Output Total 1800 ml 1050 ml 350 ml Balance -750 ml -290 ml -150 ml Exam GENERAL: The patient is sitting in bed, NAD HEENT: Pupils equal round reactive to light extraocular muscles intact NECK: Supple LUNGS: Clear to auscultation bilaterally HEART: Regular rate and rhythm. Normal S1,S2 ABDOMEN: Positive bowel sounds. Soft. EXTREMITIES: No edema, 1+ pulses bilateral posterior. Neuro: No focal deficits Results Result Diagram: 03/11/17 0511 03/11/17 0511 Results 24 hrs Laboratory Tests Test 03/10/17 11:30 03/11/17 05:11 White Blood Count 10.2 9.6 Red Blood Count 4.61 L 4.73 Hemoglobin 14.6 14.8 Hematocrit 42.3 43.0 Mean Corpuscular Volume 91.8 90.9 Mean Corpuscular Hemoglobin 31.7 31.3 Mean Corpuscular Hemoglobin Concent 34.5 34.4 Red Cell Distribution Width 13.9 13.5 Platelet Count 200 198 Mean Platelet Volume 10.1 10.2 Neutrophils % 80.7 H 70.2 Lymphocytes % 11.0 L 16.9 Monocytes % 7.1 11.4 H Eosinophils % 0.2 0.5 Basophils % 0.3 0.5 Nucleated Red Blood Cells % 0.0 0.0 Neutrophils # (Manual) 8.2 H 6.7 Lymphocytes # 1.1 1.6 Monocytes # 0.7 1.1 H Eosinophils # 0.0 0.1 Basophils # 0.0 0.1 Nucleated Red Blood Cells # 0.0 0.0 Sodium Level 137 137 Potassium Level 3.5 3.2 L Chloride Level 99 99 Carbon Dioxide Level 29 28 Anion Gap 13 # 13 Blood Urea Nitrogen 11 12 Creatinine 0.86 0.85 Glucose Level 127 # 109 Hemoglobin A1c 6.0 H Calcium Level 9.3 9.0 Phosphorus Level 2.5 Magnesium Level 1.9 Creatine Kinase 2916 #H 1200 #H Creatine Kinase Index 1.6 0.5 Creatinine Kinase MB (Mass) 45.30 H 6.58 H Troponin I 92.300 *H 34.800 *H Triglycerides Level 511 H Cholesterol Level 247 H LDL Cholesterol, Calculated 102 HDL Cholesterol 43 Cholesterol/HDL Ratio 5.7 Thyroid Stimulating Hormone (TSH) 0.628 Ethyl Alcohol Level < 10.0 Medications Medications Current Medications Aspirin (Halfprin) 81 mg DAILY PO Last administered on 03/11/17 08:24; Admin Dose 81 MG; Start 03/10/17 at 09:00 Ticagrelor (Brilinta) 90 mg BID PO Last administered on 03/11/17 08:26; Admin Dose 90 MG; Start 03/09/17 at 21:00 Acetaminophen (Tylenol Tab) 650 mg Q4H PRN PO NON-CARDIAC PAIN LEVEL 1-3 Last administered on 03/10/17 21:17; Admin Dose 650 MG; Start 03/09/17 at 14:30 Oxycodone/ Acetaminophen (Percocet (5/ 325)) 1 tab Q4H PRN PO REPORTED NON- CARDIAC PAIN 4-7; Start 03/09/17 at 14:30 Al Hydrox/Mg Hydrox/Simethicone (Mag-Al Plus) 30 ml Q4H PRN PO GASTROINTESTINAL UPSET; Start 03/09/17 at 14:30 Ondansetron HCl (Zofran Inj) 4 mg Q6H PRN IV NAUSEA AND/OR VOMITING Last administered on 03/09/17 17:20; Admin Dose 4 MG; Start 03/09/17 at 17:30 Ondansetron HCl (Zofran Inj) 4 mg Q6H PRN IV NAUSEA AND/OR VOMITING; Start at 17:30 Acetaminophen (Tylenol Tab) 650 mg Q6H PRN PO PAIN LEVEL 1-3 OR FEVER; Start at 17:30 Acetaminophen/ Hydrocodone Bitart ([place] (5/325)) 1 tab Q6H PRN PO MODERATE PAIN LEVEL 4-6 Last administered on 03/09/17 19:48; Admin Dose 1 TAB; Start at 17:30 Morphine Sulfate (morphine) 2 mg Q4H PRN IV SEVERE PAIN LEVEL 7-10 Last administered on 03/10/17 06:55; Admin Dose 2 MG; Start 03/09/17 at 17:30 Docusate Sodium (Colace) 100 mg Q12H PRN PO CONSTIPATION; Start 03/09/17 at 17: 30 Magnesium Hydroxide (Milk Of Mag) 30 ml DAILY PRN PO CONSTIPATION; Start at 17:30 Sodium Biphosphate/ Sodium Phosphate (Fleet Enema) 133 ml DAILY PRN [place] CONSTIPATION; Start 03/09/17 at 17:30 Heparin Sodium (Porcine) (Heparin (5000 Units/0.5 ml)) 5,000 unit Q12 SC Last administered on 03/11/17 08:29; Admin Dose 5,000 UNIT; Start 03/09/17 at 21:00 Lorazepam (Ativan) 0.5 mg Q6H PRN PO ANXIETY; Start 03/09/17 at 17:30 Hydralazine HCl (Apresoline) 10 mg Q6H PRN IV ELEVATED BLOOD PRESSURE; Start at 17:30 Nitroglycerin (Nitroglycerin (Sl Tab) 0.4 Mg) 1 tab Q5M PRN SL ANGINA Last administered on 03/09/17 18:27; Admin Dose 1 TAB; Start 03/09/17 at 17:30 Metoprolol Tartrate (Lopressor) 25 mg BID PO Last administered on 03/11/17 08: 24; Admin Dose 25 MG; Start 03/10/17 at 12:30 Atorvastatin Calcium (Lipitor) 80 mg HS PO Last administered on 03/10/17 21:12 ; Admin Dose 80 MG; Start 03/10/17 at 21:00 ANTWON FUCHS Mar 11, 2017 10:36
[2017-03-11 11:03] LABS: MAGNESIUM 2.1 mg/dl (1.7-2.5); PHOSPHORUS 3.3 mg/dl (2.5-4.9)
[2017-03-11] MEDS: POTASSIUM CHLORIDE 250 ML IVPB SCH ×2 (12:44→15:58)
--- NOTE | 2017-03-11 14:52 | CONS ---
Date/Time of Note Date/Time of Note DATE: 03/11/17 TIME: 14:52 Assessment/Plan Assessment/Plan Chief Complaint/Hosp Course PLEASE DELETE THIS NOTE ID TEAM IS NOT FOLLOWING * Note opened in error * Problems: Consultation Date/Type/Reason Admit Date/Time Mar 09, 2017 at 13:15 Initial Consult Date Type of Consultation: cardiology Referring Provider: ANTWON FUCHS Exam/Review of Systems Vital Signs Vitals Vital Signs Date Time Temp Pulse Resp B/P Pulse Ox O2 Delivery O2 Flow Rate FiO2 03/11/17 13:00 98.7 116 20 130/83 97 03/10/17 18:12 21 03/10/17 12:00 Room Air 03/09/17 13:13 2 Intake and Output 03/10/17 03/10/17 03/11/17 15:00 23:00 07:00 Intake Total 1050 ml 760 ml 200 ml Output Total 1800 ml 1050 ml 350 ml Balance -750 ml -290 ml -150 ml Results Result Diagram: 03/11/17 0511 03/11/17 0511 Results 24 hrs Laboratory Tests Test 03/11/17 05:11 White Blood Count 9.6 Red Blood Count 4.73 Hemoglobin 14.8 Hematocrit 43.0 Mean Corpuscular Volume 90.9 Mean Corpuscular Hemoglobin 31.3 Mean Corpuscular Hemoglobin Concent 34.4 Red Cell Distribution Width 13.5 Platelet Count 198 Mean Platelet Volume 10.2 Neutrophils % 70.2 Lymphocytes % 16.9 Monocytes % 11.4 H Eosinophils % 0.5 Basophils % 0.5 Nucleated Red Blood Cells % 0.0 Neutrophils # (Manual) 6.7 Lymphocytes # 1.6 Monocytes # 1.1 H Eosinophils # 0.1 Basophils # 0.1 Nucleated Red Blood Cells # 0.0 Sodium Level 137 Potassium Level 3.2 L Chloride Level 99 Carbon Dioxide Level 28 Anion Gap 13 Blood Urea Nitrogen 12 Creatinine 0.85 Glucose Level 109 Calcium Level 9.0 Phosphorus Level 3.3 Magnesium Level 2.1 Creatine Kinase 1200 #H Creatine Kinase Index 0.5 Creatinine Kinase MB (Mass) 6.58 H Troponin I 34.800 *H Medications Medications Current Medications Aspirin (Halfprin) 81 mg DAILY PO Last administered on 03/11/17t 08:24; Admin Dose 81 MG; Start 03/10/17 at 09:00 Ticagrelor (Brilinta) 90 mg BID PO Last administered on 03/11/17 08:26; Admin Dose 90 MG; Start 03/09/17 at 21:00 Acetaminophen (Tylenol Tab) 650 mg Q4H PRN PO NON-CARDIAC PAIN LEVEL 1-3 Last administered on 03/10/17 21:17; Admin Dose 650 MG; Start 03/09/17 at 14:30 Oxycodone/ Acetaminophen (Percocet (5/ 325)) 1 tab Q4H PRN PO REPORTED NON- CARDIAC PAIN 4-7; Start 03/09/17 at 14:30 Al Hydrox/Mg Hydrox/Simethicone (Mag-Al Plus) 30 ml Q4H PRN PO GASTROINTESTINAL UPSET; Start 03/09/17 at 14:30 Ondansetron HCl (Zofran Inj) 4 mg Q6H PRN IV NAUSEA AND/OR VOMITING Last administered on 03/09/17 17:20; Admin Dose 4 MG; Start 03/09/17 at 17:30 Ondansetron HCl (Zofran Inj) 4 mg Q6H PRN IV NAUSEA AND/OR VOMITING; Start at 17:30 Acetaminophen (Tylenol Tab) 650 mg Q6H PRN PO PAIN LEVEL 1-3 OR FEVER; Start at 17:30 Acetaminophen/ Hydrocodone Bitart ([place] (5/325)) 1 tab Q6H PRN PO MODERATE PAIN LEVEL 4-6 Last administered on 03/09/17 19:48; Admin Dose 1 TAB; Start at 17:30 Morphine Sulfate (morphine) 2 mg Q4H PRN IV SEVERE PAIN LEVEL 7-10 Last administered on 03/10/17 06:55; Admin Dose 2 MG; Start 03/09/17 at 17:30 Docusate Sodium (Colace) 100 mg Q12H PRN PO CONSTIPATION; Start 03/09/17 at 17: 30 Magnesium Hydroxide (Milk Of Mag) 30 ml DAILY PRN PO CONSTIPATION; Start at 17:30 Sodium Biphosphate/ Sodium Phosphate (Fleet Enema) 133 ml DAILY PRN [place] CONSTIPATION; Start 03/09/17 at 17:30 Heparin Sodium (Porcine) (Heparin (5000 Units/0.5 ml)) 5,000 unit Q12 SC Last administered on 03/11/17 08:29; Admin Dose 5,000 UNIT; Start 03/09/17 at 21:00 Lorazepam (Ativan) 0.5 mg Q6H PRN PO ANXIETY; Start 03/09/17 at 17:30 Hydralazine HCl (Apresoline) 10 mg Q6H PRN IV ELEVATED BLOOD PRESSURE; Start at 17:30 Nitroglycerin (Nitroglycerin (Sl Tab) 0.4 Mg) 1 tab Q5M PRN SL ANGINA Last administered on 03/09/17 18:27; Admin Dose 1 TAB; Start 03/09/17 at 17:30 Atorvastatin Calcium 80 mg 80 mg HS PO Last administered on 03/10/17 21:12; Admin Dose 80 MG; Start 03/10/17 at 21:00 Potassium Chloride (KCl 40 MEQ/250 ML NS) 250 ml @ 62.5 mls/hr Q4H IVPB Last administered on 03/11/17 12:44; Admin Dose 62.5 MLS/HR; Start 03/11/17 at 11:00; Stop 03/11/17 at 18:59 ABBI CAO NP Mar 11, 2017 14:52
[2017-03-11] MEDS ORDERED: METOPROLOL 5 MG INJ IV ONE (15:30)
--- NOTE | 2017-03-11 16:34 | PN ---
Date/Time of Note Date/Time of Note DATE: 03/11/17 TIME: 15:48 Assessment/Plan VTE Prophylaxis VTE Prophylaxis Intervention: heparin Lines/Catheters IV Catheter Type (from [facility]): Peripheral IV Central line still needed: No Urinary Cath still in place: No Assessment/Plan Chief Complaint/Hosp Course 1. Recent (24 hours) anteroseptal NSTEMI. 2. Severe 3 vessel coronary artery disease. 3. Severe ischemic cardiomyopathy, LVEF 15 - 20%. 4. Persistent sinus tachycardia. 5. Borderline systolic blood pressure. 6. Status post stenting of distal left main coronary artery. Plan: Titrate up the dose and the dosing of beta toi as tolerated. Signed: Jose Rafael Delacruz MD Problems: Subjective 24 Hr Interval Summary Subjective hx not possible: other (ROS with no symptoms) Exam/Review of Systems Vital Signs Vitals Vital Signs Date Time Temp Pulse Resp B/P Pulse Ox O2 Delivery O2 Flow Rate FiO2 03/11/17 13:00 98.7 116 20 130/83 97 03/10/17 18:12 21 03/10/17 12:00 Room Air 03/09/17 13:13 2 Intake and Output 03/10/17 03/10/17 03/11/17 15:00 23:00 07:00 Intake Total 1050 ml 760 ml 200 ml Output Total 1800 ml 1050 ml 350 ml Balance -750 ml -290 ml -150 ml Exam Constitutional: alert, oriented, well developed Psych: nl mood/affect, no complaints Head: atraumatic, normocephalic Eyes: EOMI, nl conjunctiva, nl lids, nl sclera Neck: non-tender, supple, No jvd Respiratory: clear to auscultation, congested cough, crackles/rales, diminished breath sounds, intercostal retraction, labored breathing, normal air movement, other, respirations, tactile fremitus, wheezing Cardiovascular: S3, S4, bruits, diastolic murmur, edema, gallop, irregular rhythm, jugular venous distention (JVD), murmurs/extra sounds, nl pulses, other (Persistent sinus tachycardia), regular rate and rhythm, rub, systolic murmur Gastrointestinal: other, tender Results Result Diagram: 03/11/17 0511 03/11/17 0511 Results 24 hrs Laboratory Tests Test 03/11/17 05:11 White Blood Count 9.6 Red Blood Count 4.73 Hemoglobin 14.8 Hematocrit 43.0 Mean Corpuscular Volume 90.9 Mean Corpuscular Hemoglobin 31.3 Mean Corpuscular Hemoglobin Concent 34.4 Red Cell Distribution Width 13.5 Platelet Count 198 Mean Platelet Volume 10.2 Neutrophils % 70.2 Lymphocytes % 16.9 Monocytes % 11.4 H Eosinophils % 0.5 Basophils % 0.5 Nucleated Red Blood Cells % 0.0 Neutrophils # (Manual) 6.7 Lymphocytes # 1.6 Monocytes # 1.1 H Eosinophils # 0.1 Basophils # 0.1 Nucleated Red Blood Cells # 0.0 Sodium Level 137 Potassium Level 3.2 L Chloride Level 99 Carbon Dioxide Level 28 Anion Gap 13 Blood Urea Nitrogen 12 Creatinine 0.85 Glucose Level 109 Calcium Level 9.0 Phosphorus Level 3.3 Magnesium Level 2.1 Creatine Kinase 1200 #H Creatine Kinase Index 0.5 Creatinine Kinase MB (Mass) 6.58 H Troponin I 34.800 *H Medications Medications Current Medications Aspirin (Halfprin) 81 mg DAILY PO Last administered on 03/11/17 08:24; Admin Dose 81 MG; Start 03/10/17 at 09:00 Ticagrelor (Brilinta) 90 mg BID PO Last administered on 03/11/17 08:26; Admin Dose 90 MG; Start 03/09/17 at 21:00 Acetaminophen (Tylenol Tab) 650 mg Q4H PRN PO NON-CARDIAC PAIN LEVEL 1-3 Last administered on 03/10/17 21:17; Admin Dose 650 MG; Start 03/09/17 at 14:30 Oxycodone/ Acetaminophen (Percocet (5/ 325)) 1 tab Q4H PRN PO REPORTED NON- CARDIAC PAIN 4-7; Start 03/09/17 at 14:30 Al Hydrox/Mg Hydrox/Simethicone (Mag-Al Plus) 30 ml Q4H PRN PO GASTROINTESTINAL UPSET; Start 03/09/17 at 14:30 Ondansetron HCl (Zofran Inj) 4 mg Q6H PRN IV NAUSEA AND/OR VOMITING Last administered on 03/09/17 17:20; Admin Dose 4 MG; Start 03/09/17 at 17:30 Ondansetron HCl (Zofran Inj) 4 mg Q6H PRN IV NAUSEA AND/OR VOMITING; Start at 17:30 Acetaminophen (Tylenol Tab) 650 mg Q6H PRN PO PAIN LEVEL 1-3 OR FEVER; Start at 17:30 Acetaminophen/ Hydrocodone Bitart ([place] (5/325)) 1 tab Q6H PRN PO MODERATE PAIN LEVEL 4-6 Last administered on 03/09/17 19:48; Admin Dose 1 TAB; Start at 17:30 Morphine Sulfate (morphine) 2 mg Q4H PRN IV SEVERE PAIN LEVEL 7-10 Last administered on 03/10/17 06:55; Admin Dose 2 MG; Start 03/09/17 at 17:30 Docusate Sodium (Colace) 100 mg Q12H PRN PO CONSTIPATION; Start 03/09/17 at 17: 30 Magnesium Hydroxide (Milk Of Mag) 30 ml DAILY PRN PO CONSTIPATION; Start at 17:30 Sodium Biphosphate/ Sodium Phosphate (Fleet Enema) 133 ml DAILY PRN [place] CONSTIPATION; Start 03/09/17 at 17:30 Heparin Sodium (Porcine) (Heparin (5000 Units/0.5 ml)) 5,000 unit Q12 SC Last administered on 03/11/17 08:29; Admin Dose 5,000 UNIT; Start 03/09/17 at 21:00 Lorazepam (Ativan) 0.5 mg Q6H PRN PO ANXIETY; Start 03/09/17 at 17:30 Hydralazine HCl (Apresoline) 10 mg Q6H PRN IV ELEVATED BLOOD PRESSURE; Start at 17:30 Nitroglycerin (Nitroglycerin (Sl Tab) 0.4 Mg) 1 tab Q5M PRN SL ANGINA Last administered on 03/09/17 18:27; Admin Dose 1 TAB; Start 03/09/17 at 17:30 Atorvastatin Calcium 80 mg 80 mg HS PO Last administered on 03/10/17 21:12; Admin Dose 80 MG; Start 03/10/17 at 21:00 Potassium Chloride (KCl 40 MEQ/250 ML NS) 250 ml @ 62.5 mls/hr Q4H IVPB Last administered on 03/11/17 12:44; Admin Dose 62.5 MLS/HR; Start 03/11/17 at 11:00; Stop 03/11/17 at 18:59 Metoprolol Tartrate (Lopressor) 25 mg Q6 PO ; Start 03/11/17 at 18:00 JOSE RAFAEL DELACRUZ MD Mar 11, 2017 15:58
[2017-03-11] MEDS: ACETAMINOPHEN 325 MG TAB PO PRN (21:07)
[2017-03-11] MEDS: ATORVASTATIN 80 MG TAB PO SCH (21:07)
[2017-03-12] VITALS (38 sets, daily range): BP systolic 83–121; BP diastolic 59–94; PULSE 93–117; RESP 8–34
[2017-03-12] MEDS: METOPROLOL 25 MG TAB PO SCH ×4 (00:29→16:48)
[2017-03-12 05:13] LABS: CALCIUM 8.7 mg/dl (8.4-10.2); CREATININE 0.91 mg/dl (0.61-1.24); POTASSIUM 4.9 mmol/L (3.5-5.1)
[2017-03-12 05:19] LABS: BASOPHILS % 0.5 % (0.0-2.0); EOSINOPHILS # 0.1 10^3/ul (0.0-0.5); EOSINOPHILS % 1.6 % (0.0-7.0); HEMATOCRIT 40.9 % (42.0-52.0); HEMOGLOBIN 13.9 g/dl (14.0-18.0); LYMPHOCYTES % 25.4 % (15.0-51.0); MEAN CORPUSCULAR HEMOGLOBIN 31.7 pg (29.0-33.0); MEAN CORPUSCULAR VOLUME 93.2 fl (82.0-101.0); MEAN PLATELET VOLUME 9.9 fl (7.4-10.4); MONOCYTE # 1.2 10^3/ul (0.3-0.9); MONOCYTES % 14.9 % (0.0-11.0); PLATELET COUNT 186 10^3/UL (140-415); RED BLOOD COUNT 4.39 10^6/ul (4.70-6.10); RED CELL DISTRIBUTION WIDTH 13.7 % (11.5-14.5)
[2017-03-12] MEDS: ASPIRIN (EC) 81 MG TAB PO SCH (08:09)
[2017-03-12] MEDS: TICAGRELOR 90 MG TABLET PO SCH ×2 (08:10→20:03)
[2017-03-12] MEDS: HEPARIN 5,000 UNIT/0.5 ML VIAL SC SCH ×2 (08:12→20:05)
--- NOTE | 2017-03-12 09:08 | PN ---
Date/Time of Note Date/Time of Note DATE: 03/12/17 TIME: 09:03 Assessment/Plan VTE Prophylaxis VTE Prophylaxis Intervention: heparin Lines/Catheters IV Catheter Type (from [facility]): Peripheral IV Urinary Cath still in place: No Assessment/Plan Chief Complaint/Hosp Course Assessment and plan: 47-year-old male coming in with chest pain and ST elevation PA, status post left heart cath with 2 drug-eluting stents to the LAD. 1. ST elevation PA: Again status post 2 drug-eluting stent placement to LAD blockage. Denies chest pain presently, heart rate has improved with increased dose of beta-toi. -Follow-up post cath recommendations, monitor heart rate, new aspirin and Brilinta, high-dose statin, follow-up cardiology recommendations. - Pain control and nausea control with medicines and antiemetics. -continue current CV meds 2. HTN: See #1, continue current cardiac medications 3. Smoking history: Counseled on cessation 4. Cholesterol: Continue statin Critical care time spent on patient care today 40 minutes Problems: Exam/Review of Systems Vital Signs Vitals Vital Signs Date Time Temp Pulse Resp B/P Pulse Ox O2 Delivery O2 Flow Rate FiO2 03/12/17 08:30 106 15 102/89 100 03/12/17 07:30 98.0 03/10/17 18:12 21 03/10/17 12:00 Room Air 03/09/17 13:13 2 Intake and Output 03/11/17 03/11/17 03/12/17 15:00 23:00 07:00 Intake Total 1065.0 ml 545.0 ml 240 ml Output Total 950 ml 600 ml 500 ml Balance 115.0 ml -55.0 ml -260 ml Exam GENERAL: The patient is sitting in bed, NAD HEENT: Pupils equal round reactive to light extraocular muscles intact NECK: Supple LUNGS: Clear to auscultation bilaterally HEART: Regular rate and rhythm. Normal S1,S2 ABDOMEN: Positive bowel sounds. Soft. EXTREMITIES: No edema, 1+ pulses bilateral posterior. Neuro: No focal deficits Results Result Diagram: 03/12/17 0435 03/12/17 0435 Results 24 hrs Laboratory Tests Test 03/12/17 04:35 White Blood Count 8.0 Red Blood Count 4.39 L Hemoglobin 13.9 L Hematocrit 40.9 L Mean Corpuscular Volume 93.2 Mean Corpuscular Hemoglobin 31.7 Mean Corpuscular Hemoglobin Concent 34.0 Red Cell Distribution Width 13.7 Platelet Count 186 Mean Platelet Volume 9.9 Neutrophils % 57.0 Lymphocytes % 25.4 Monocytes % 14.9 H Eosinophils % 1.6 Basophils % 0.5 Nucleated Red Blood Cells % 0.0 Neutrophils # (Manual) 4.6 Lymphocytes # 2.0 Monocytes # 1.2 H Eosinophils # 0.1 Basophils # 0.0 Nucleated Red Blood Cells # 0.0 Sodium Level 142 Potassium Level 4.9 Chloride Level 107 Carbon Dioxide Level 30 Anion Gap 10 Blood Urea Nitrogen 13 Creatinine 0.91 Glucose Level 107 Calcium Level 8.7 Medications Medications Current Medications Aspirin (Halfprin) 81 mg DAILY PO Last administered on 03/12/17 08:09; Admin Dose 81 MG; Start 03/10/17 at 09:00 Ticagrelor (Brilinta) 90 mg BID PO Last administered on 03/12/17 08:10; Admin Dose 90 MG; Start 03/09/17 at 21:00 Acetaminophen (Tylenol Tab) 650 mg Q4H PRN PO NON-CARDIAC PAIN LEVEL 1-3 Last administered on 03/11/17 21:07; Admin Dose 650 MG; Start 03/09/17 at 14:30 Oxycodone/ Acetaminophen (Percocet (5/ 325)) 1 tab Q4H PRN PO REPORTED NON- CARDIAC PAIN 4-7; Start 03/09/17 at 14:30 Al Hydrox/Mg Hydrox/Simethicone (Mag-Al Plus) 30 ml Q4H PRN PO GASTROINTESTINAL UPSET; Start 03/09/17 at 14:30 Ondansetron HCl (Zofran Inj) 4 mg Q6H PRN IV NAUSEA AND/OR VOMITING Last administered on 03/09/17 17:20; Admin Dose 4 MG; Start 03/09/17 at 17:30 Ondansetron HCl (Zofran Inj) 4 mg Q6H PRN IV NAUSEA AND/OR VOMITING; Start at 17:30 Acetaminophen (Tylenol Tab) 650 mg Q6H PRN PO PAIN LEVEL 1-3 OR FEVER; Start at 17:30 Acetaminophen/ Hydrocodone Bitart ([place] (5/325)) 1 tab Q6H PRN PO MODERATE PAIN LEVEL 4-6 Last administered on 03/09/17 19:48; Admin Dose 1 TAB; Start at 17:30 Morphine Sulfate (morphine) 2 mg Q4H PRN IV SEVERE PAIN LEVEL 7-10 Last administered on 03/10/17 06:55; Admin Dose 2 MG; Start 03/09/17 at 17:30 Docusate Sodium (Colace) 100 mg Q12H PRN PO CONSTIPATION; Start 03/09/17 at 17: 30 Magnesium Hydroxide (Milk Of Mag) 30 ml DAILY PRN PO CONSTIPATION; Start at 17:30 Sodium Biphosphate/ Sodium Phosphate (Fleet Enema) 133 ml DAILY PRN [place] CONSTIPATION; Start 03/09/17 at 17:30 Heparin Sodium (Porcine) (Heparin (5000 Units/0.5 ml)) 5,000 unit Q12 SC Last administered on 03/12/17 08:12; Admin Dose 5,000 UNIT; Start 03/09/17 at 21:00 Lorazepam (Ativan) 0.5 mg Q6H PRN PO ANXIETY; Start 03/09/17 at 17:30 Hydralazine HCl (Apresoline) 10 mg Q6H PRN IV ELEVATED BLOOD PRESSURE; Start at 17:30 Nitroglycerin (Nitroglycerin (Sl Tab) 0.4 Mg) 1 tab Q5M PRN SL ANGINA Last administered on 03/09/17 18:27; Admin Dose 1 TAB; Start 03/09/17 at 17:30 Atorvastatin Calcium (Lipitor) 80 mg HS PO Last administered on 03/11/17 21:07 ; Admin Dose 80 MG; Start 03/10/17 at 21:00 Metoprolol Tartrate (Lopressor) 25 mg Q6 PO Last administered on 03/12/17 06:51 ; Admin Dose 25 MG; Start 03/11/17 at 18:00 ANTWON FUCHS Mar 12, 2017 09:08
[2017-03-12] MEDS: ATORVASTATIN 80 MG TAB PO SCH (20:01)
[2017-03-12] MEDS: HYDROCODONE/APAP (5/325) TAB PO PRN (20:01)
--- NOTE | 2017-03-12 21:15 | PN ---
Date/Time of Note Date/Time of Note DATE: 03/12/17 TIME: 21:01 Assessment/Plan VTE Prophylaxis VTE Prophylaxis Intervention: heparin Lines/Catheters IV [facility]ter Type (from [facility]): Peripheral IV Urinary Cath still in place: No Assessment/Plan Chief Complaint/Hosp Course 1. Recent (48 hours) anteroseptal NSTEMI. 2. Severe 3 vessel coronary artery disease. 3. Severe ischemic cardiomyopathy, LVEF 15 - 20%. 4. Persistent sinus tachycardia. 5. Borderline systolic blood pressure. 6. Status post stenting of distal left main coronary artery. Plan: Titrate up the dose and the dosing of beta toi as tolerated. Consider transfer to telemetry in AM if stable Signed: Jose Rafael Delacruz MD Problems: Cont'd Hospitalization Reason: Large MS by echocardiographic criteria. Subjective 24 Hr Interval Summary Constitutional: improved, no complaints Eyes: no complaints ENT: no complaints Respiratory: no complaints Cardiovascular: no complaints Gastrointestinal: no complaints Genitourinary: no complaints Musculoskeletal: no complaints Skin: no complaints Neurologic: no complaints Endocrine: no complaints Psychological: nl mood/affect, no complaints Exam/Review of Systems Vital Signs Vitals Vital Signs Date Time Temp Pulse Resp B/P Pulse Ox O2 Delivery O2 Flow Rate FiO2 03/12/17 20:00 115 03/12/17 20:00 98.5 18 114/75 99 Room Air 03/10/17 18:12 21 03/09/17 13:13 2 Intake and Output 03/11/17 03/11/17 03/12/17 15:00 23:00 07:00 Intake Total 1065.0 ml 545.0 ml 240 ml Output Total 950 ml 600 ml 500 ml Balance 115.0 ml -55.0 ml -260 ml Results Result Diagram: 03/12/17 0435 03/12/17 0435 Results 24 hrs Laboratory Tests Test 03/12/17 04:35 White Blood Count 8.0 Red Blood Count 4.39 L Hemoglobin 13.9 L Hematocrit 40.9 L Mean Corpuscular Volume 93.2 Mean Corpuscular Hemoglobin 31.7 Mean Corpuscular Hemoglobin Concent 34.0 Red Cell Distribution Width 13.7 Platelet Count 186 Mean Platelet Volume 9.9 Neutrophils % 57.0 Lymphocytes % 25.4 Monocytes % 14.9 H Eosinophils % 1.6 Basophils % 0.5 Nucleated Red Blood Cells % 0.0 Neutrophils # (Manual) 4.6 Lymphocytes # 2.0 Monocytes # 1.2 H Eosinophils # 0.1 Basophils # 0.0 Nucleated Red Blood Cells # 0.0 Sodium Level 142 Potassium Level 4.9 Chloride Level 107 Carbon Dioxide Level 30 Anion Gap 10 Blood Urea Nitrogen 13 Creatinine 0.91 Glucose Level 107 Calcium Level 8.7 Medications Medications Current Medications Aspirin (Halfprin) 81 mg DAILY PO Last administered on 03/12/17 08:09; Admin Dose 81 MG; Start 03/10/17 at 09:00 Ticagrelor (Brilinta) 90 mg BID PO Last administered on 03/12/17 20:03; Admin Dose 90 MG; Start 03/09/17 at 21:00 Acetaminophen (Tylenol Tab) 650 mg Q4H PRN PO NON-CARDIAC PAIN LEVEL 1-3 Last administered on 03/11/17 21:07; Admin Dose 650 MG; Start 03/09/17 at 14:30 Oxycodone/ Acetaminophen (Percocet (5/ 325)) 1 tab Q4H PRN PO REPORTED NON- CARDIAC PAIN 4-7; Start 03/09/17 at 14:30 Al Hydrox/Mg Hydrox/Simethicone (Mag-Al Plus) 30 ml Q4H PRN PO GASTROINTESTINAL UPSET; Start 03/09/17 at 14:30 Ondansetron HCl (Zofran Inj) 4 mg Q6H PRN IV NAUSEA AND/OR VOMITING Last administered on 03/09/17 17:20; Admin Dose 4 MG; Start 03/09/17 at 17:30 Ondansetron HCl (Zofran Inj) 4 mg Q6H PRN IV NAUSEA AND/OR VOMITING; Start at 17:30 Acetaminophen (Tylenol Tab) 650 mg Q6H PRN PO PAIN LEVEL 1-3 OR FEVER; Start at 17:30 Acetaminophen/ Hydrocodone Bitart ([place] (5/325)) 1 tab Q6H PRN PO MODERATE PAIN LEVEL 4-6 Last administered on 03/12/17 20:01; Admin Dose 1 TAB; Start at 17:30 Morphine Sulfate (morphine) 2 mg Q4H PRN IV SEVERE PAIN LEVEL 7-10 Last administered on 03/10/17 06:55; Admin Dose 2 MG; Start 03/09/17 at 17:30 Docusate Sodium (Colace) 100 mg Q12H PRN PO CONSTIPATION; Start 03/09/17 at 17: 30 Magnesium Hydroxide (Milk Of Mag) 30 ml DAILY PRN PO CONSTIPATION; Start at 17:30 Sodium Biphosphate/ Sodium Phosphate (Fleet Enema) 133 ml DAILY PRN [place] CONSTIPATION; Start 03/09/17 at 17:30 Heparin Sodium (Porcine) (Heparin (5000 Units/0.5 ml)) 5,000 unit Q12 SC Last administered on 03/12/17 20:05; Admin Dose 5,000 UNIT; Start 03/09/17 at 21:00 Lorazepam (Ativan) 0.5 mg Q6H PRN PO ANXIETY; Start 03/09/17 at 17:30 Hydralazine HCl (Apresoline) 10 mg Q6H PRN IV ELEVATED BLOOD PRESSURE; Start at 17:30 Nitroglycerin (Nitroglycerin (Sl Tab) 0.4 Mg) 1 tab Q5M PRN SL ANGINA Last administered on 03/09/17 18:27; Admin Dose 1 TAB; Start 03/09/17 at 17:30 Atorvastatin Calcium (Lipitor) 80 mg HS PO Last administered on 03/12/17 20:01 ; Admin Dose 80 MG; Start 03/10/17 at 21:00 Metoprolol Tartrate (Lopressor) 25 mg Q6 PO Last administered on 03/12/17 16:48 ; Admin Dose 25 MG; Start 03/11/17 at 18:00 JOSE RAFAEL DELACRUZ MD Mar 12, 2017 21:11
[2017-03-13] VITALS (15 sets, daily range): BP systolic 91–135; BP diastolic 64–105; PULSE 63–114; RESP 14–20
[2017-03-13] MEDS: METOPROLOL 25 MG TAB PO SCH ×3 (00:48→12:55)
[2017-03-13 06:29] LABS: BASOPHILS % 0.4 % (0.0-2.0); EOSINOPHILS # 0.1 10^3/ul (0.0-0.5); EOSINOPHILS % 1.9 % (0.0-7.0); HEMATOCRIT 35.1 % (42.0-52.0); HEMOGLOBIN 12.1 g/dl (14.0-18.0); LYMPHOCYTES # 1.9 10^3/ul (0.8-2.9); LYMPHOCYTES % 28.3 % (15.0-51.0); MEAN CORPUSCULAR HEMOGLOBIN 31.6 pg (29.0-33.0); MEAN CORPUSCULAR HGB CONC 34.5 g/dl (32.0-37.0); MEAN CORPUSCULAR VOLUME 91.6 fl (82.0-101.0); MEAN PLATELET VOLUME 10.1 fl (7.4-10.4); MONOCYTE # 0.7 10^3/ul (0.3-0.9); NEUTROPHILS % 58.1 % (39.0-77.0); PLATELET COUNT 193 10^3/UL (140-415); RED BLOOD COUNT 3.83 10^6/ul (4.70-6.10); RED CELL DISTRIBUTION WIDTH 13.4 % (11.5-14.5); WHITE BLOOD COUNT 6.7 10^3/ul (4.8-10.8)
[2017-03-13 06:53] LABS: CALCIUM 8.2 mg/dl (8.4-10.2); CREATININE 0.76 mg/dl (0.61-1.24); POTASSIUM 3.5 mmol/L (3.5-5.1)
[2017-03-13] MEDS: ASPIRIN (EC) 81 MG TAB PO SCH (09:33)
[2017-03-13] MEDS: HEPARIN 5,000 UNIT/0.5 ML VIAL SC SCH (09:33)
[2017-03-13] MEDS: TICAGRELOR 90 MG TABLET PO SCH ×2 (09:33→20:30)
--- NOTE | 2017-03-13 13:22 | PN ---
Date/Time of Note Date/Time of Note DATE: 03/13/17 TIME: 13:05 Assessment/Plan VTE Prophylaxis VTE Prophylaxis Intervention: LMWH Lines/Catheters IV C[facility] Type (from [facility] Peripheral IV Urinary Cath still in place: No Assessment/Plan Chief Complaint/Hosp Course 1. Recent (48 hours) anteroseptal NSTEMI. 2. Severe 3 vessel coronary artery disease. 3. Severe ischemic cardiomyopathy, LVEF 15 - 20%. 4. Persistent sinus tachycardia. 5. Borderline systolic blood pressure. 6. Status post stenting of distal left main coronary artery. Plan: Titrate up the dose and the dosing of beta toi as tolerated. Consider transfer to telemetry in AM if stable Signed: Jose Rafael Delacruz MD Problems: Assessment/Plan Patient improved. BP normalized, no longer hypotensive or borderline, heart rate below 100 BPM (no longer tachycardiac). Good response to metoprolol tartrate 25mg q6h. Plan: Discontinue Lopressor after the noon dose. Transfer to telemetry and ambulate. Start carvedilol 3.125mg BID, first dose tonight. Subjective 24 Hr Interval Summary Constitutional: improved, no complaints Eyes: no complaints ENT: no complaints Respiratory: no complaints Cardiovascular: no complaints Gastrointestinal: no complaints Genitourinary: no complaints Musculoskeletal: no complaints Skin: no complaints Neurologic: no complaints Psychological: nl mood/affect, no complaints Exam/Review of Systems Vital Signs Vitals Vital Signs Date Time Temp Pulse Resp B/P Pulse Ox O2 Delivery O2 Flow Rate FiO2 03/13/17 12:00 100 03/13/17 09:00 98/74 96 Room Air 03/13/17 08:00 98.8 03/13/17 07:00 14 03/13/17 01:53 21 03/09/17 13:13 2 Intake and Output 03/12/17 03/12/17 03/13/17 15:00 23:00 07:00 Intake Total 750 ml 830 ml 591 ml Output Total 850 ml 900 ml 650 ml Balance -100 ml -70 ml -59 ml Exam Constitutional: alert, oriented Psych: no complaints Head: atraumatic, normocephalic Eyes: EOMI, nl conjunctiva Neck: non-tender, supple Respiratory: clear to auscultation Cardiovascular: nl pulses, regular rate and rhythm Gastrointestinal: non-tender, soft Musculoskeletal: nl extremities to inspection Extremities: normal pulses Neurological: [employer] II-XII intact Results Result Diagram: 03/13/17 0525 03/13/17 0525 Results 24 hrs Laboratory Tests Test 03/13/17 05:25 White Blood Count 6.7 Red Blood Count 3.83 L Hemoglobin 12.1 L Hematocrit 35.1 L Mean Corpuscular Volume 91.6 Mean Corpuscular Hemoglobin 31.6 Mean Corpuscular Hemoglobin Concent 34.5 Red Cell Distribution Width 13.4 Platelet Count 193 Mean Platelet Volume 10.1 Neutrophils % 58.1 Lymphocytes % 28.3 Monocytes % 11.0 Eosinophils % 1.9 Basophils % 0.4 Nucleated Red Blood Cells % 0.0 Neutrophils # (Manual) 3.9 Lymphocytes # 1.9 Monocytes # 0.7 Eosinophils # 0.1 Basophils # 0.0 Nucleated Red Blood Cells # 0.0 Sodium Level 138 Potassium Level 3.5 Chloride Level 103 Carbon Dioxide Level 27 Anion Gap 12 Blood Urea Nitrogen 12 Creatinine 0.76 Glucose Level 94 Calcium Level 8.2 L Medications Medications Current Medications Aspirin (Halfprin) 81 mg DAILY PO Last administered on 03/13/17 09:33; Admin Dose 81 MG; Start 03/10/17 at 09:00 Ticagrelor (Brilinta) 90 mg BID PO Last administered on 03/13/17 09:33; Admin Dose 90 MG; Start 03/09/17 at 21:00 Acetaminophen (Tylenol Tab) 650 mg Q4H PRN PO NON-CARDIAC PAIN LEVEL 1-3 Last administered on 03/11/17 21:07; Admin Dose 650 MG; Start 03/09/17 at 14:30 Oxycodone/ Acetaminophen (Percocet (5/ 325)) 1 tab Q4H PRN PO REPORTED NON- CARDIAC PAIN 4-7; Start 03/09/17 at 14:30 Al Hydrox/Mg Hydrox/Simethicone (Mag-Al Plus) 30 ml Q4H PRN PO GASTROINTESTINAL UPSET; Start 03/09/17 at 14:30 Ondansetron HCl (Zofran Inj) 4 mg Q6H PRN IV NAUSEA AND/OR VOMITING; Start at 17:30 Acetaminophen (Tylenol Tab) 650 mg Q6H PRN PO PAIN LEVEL 1-3 OR FEVER; Start at 17:30 Acetaminophen/ Hydrocodone Bitart ([place] (5/325)) 1 tab Q6H PRN PO MODERATE PAIN LEVEL 4-6 Last administered on 03/12/17 20:01; Admin Dose 1 TAB; Start at 17:30 Morphine Sulfate (morphine) 2 mg Q4H PRN IV SEVERE PAIN LEVEL 7-10 Last administered on 03/10/17 06:55; Admin Dose 2 MG; Start 03/09/17 at 17:30 Docusate Sodium (Colace) 100 mg Q12H PRN PO CONSTIPATION; Start 03/09/17 at 17: 30 Magnesium Hydroxide (Milk Of Mag) 30 ml DAILY PRN PO CONSTIPATION; Start at 17:30 Sodium Biphosphate/ Sodium Phosphate (Fleet Enema) 133 ml DAILY PRN [place] CONSTIPATION; Start 03/09/17 at 17:30 Heparin Sodium (Porcine) (Heparin (5000 Units/0.5 ml)) 5,000 unit Q12 SC Last administered on 03/13/17 09:33; Admin Dose 5,000 UNIT; Start 03/09/17 at 21:00 Lorazepam (Ativan) 0.5 mg Q6H PRN PO ANXIETY; Start 03/09/17 at 17:30 Hydralazine HCl (Apresoline) 10 mg Q6H PRN IV ELEVATED BLOOD PRESSURE; Start at 17:30 Nitroglycerin (Nitroglycerin (Sl Tab) 0.4 Mg) 1 tab Q5M PRN SL ANGINA Last administered on 03/09/17 18:27; Admin Dose 1 TAB; Start 03/09/17 at 17:30 Atorvastatin Calcium (Lipitor) 80 mg HS PO Last administered on 03/12/17 20:01 ; Admin Dose 80 MG; Start 03/10/17 at 21:00 Metoprolol Tartrate (Lopressor) 25 mg Q6 PO Last administered on 03/13/17 12:55 ; Admin Dose 25 MG; Start 03/11/17 at 18:00; Stop 03/13/17 at 14:00 Carvedilol (Coreg) 6.25 mg BID PO ; Start 03/13/17 at 21:00 JOSE RAFAEL DELACRUZ MD Mar 13, 2017 13:20
--- NOTE | 2017-03-13 15:22 | RADRPT ---
Echocardiogram Report Patient Name: ABEBA RENAE Gender: Male Date: 1970 Study Date: 11-Mar-2017 Operations Dispatcher: AG Location: I Ref. Physician: JOSE RAFAEL DELACRUZ Quality: Adequate Procedures: Transthoracic echocardiogram with complete 2D, M-Mode, and Doppler examination. Indications: Myocardial infarction. 2D/M Mode Doppler Measurement Value Normal Ranges Measurement Value Normal Ranges AoR Diam MM 3.6 cm AV Peak Reagan 1.3 m/sec ACS MM 2.0 cm AV Peak PG 6.7 mmHg LVIDd 2D 3.8 3.5 - 5.6 cm LVOT Peak Reagan 1.2 m/sec LVIDs 2D 3.4 2.1 - 4.1 cm LVOT Peak PG 5.5 mmHg LVPWd 2D 1.0 0.6 - 1.1 cm MV E Peak Reagan 0.3 m/sec IVSd 2D 1.8 0.6 - 1.1 cm MV A Peak Reagan 0.6 m/sec EDV 2D 60.6 cm3 MV E/A 0.5 ESV 2D 40.8 cm3 MV E/A 0.5 LA Dimen 2D 3.3 2.3 - 4.0 cm PV Peak Reagan 0.9 m/sec PV Peak PG 4.0 mmHg Findings Left Ventricle: Normal left ventricular cavity size. Moderate asymmetric septal hypertrophy. Severe left ventricular systolic dysfunction. Ejection fraction is visually estimated at 20 %. No left ventricular outflow tract gradient at rest. Multiple segmental wall motion abnormalities. These segments of the LV are hypokinetic mid anterior segment and apical lateral segment. These segments of the LV are akinetic apical septum segment, Apical inferior segment, apical lateral segment, apical anterior segment, mid anterior segment and anteroseptum mid segment. Right Ventricle: Normal right ventricular size. Left Atrium: The left atrium is normal in size. Not well visualized. Right Atrium: The right atrium is normal in size. Atrial Septum: Normal atrial septum. Mitral Valve: Normal appearance of the mitral valve. Trace mitral regurgitation. Aortic Valve: Normal appearance of the aortic valve. No significant aortic stenosis or insufficiency. Tricuspid Valve: Normal appearance of the tricuspid valve. No evidence of tricuspid regurgitation. Pulmonic Valve: Normal pulmonic valve appearance. No evidence of pulmonic regurgitation. Pericardium: Small pericardial effusion. Aorta: Normal aortic root. IVC: Normal size and normal respiratory collapse consistent with normal right atrial pressure. Pulmonary Artery: Normal pulmonary artery size. Conclusions 1.Normal left ventricular cavity size. Moderate asymmetric septal hypertrophy. Severe left ventricular systolic dysfunction. Ejection fraction is visually estimated at 20 %. No left ventricular outflow tract gradient at rest. Multiple segmental wall motion abnormalities. These segments of the LV are hypokinetic mid anterior segment and apical lateral segment. . These segments of the LV are akinetic apical septum segment, Apical inferior segment, apical lateral segment, apical anterior segment, mid anterior segment and anteroseptum mid segment. Electronically Signed By: Jose Rafael Delacruz 13-Mar-2017 15:22:20 -0700 Patient Name: ABEBA RENAE Study Date: 11-Mar-2017 [id number]
[2017-03-13] MEDS: ACETAMINOPHEN 325 MG TAB PO PRN (17:24)
[2017-03-13] MEDS: HYDROCODONE/APAP (5/325) TAB PO PRN (17:31)
--- NOTE | 2017-03-13 18:18 | PN ---
Date/Time of Note Date/Time of Note DATE: 03/13/17 TIME: 18:09 Assessment/Plan VTE Prophylaxis VTE Prophylaxis Intervention: SCD's Lines/Catheters IV Catheter Type (from Nrs): Peripheral IV Urinary Cath still in place: No Assessment/Plan Assessment/Plan 47 yo male presented with chest pain, found to have STEMI, sp PCI #STEMI sp PCI -DAPT, BP control, statin smoking cessation previously advised discharge as per cardiology Subjective 24 Hr Interval Summary Free Text/Dictation Feels ok. Sitting in chair Exam/Review of Systems Vital Signs Vitals Vital Signs Date Time Temp Pulse Resp B/P Pulse Ox O2 Delivery O2 Flow Rate FiO2 03/13/17 16:11 97 03/13/17 15:37 98.6 19 119/77 99 03/13/17 13:00 Room Air 03/13/17 01:53 21 03/09/17 13:13 2 Intake and Output 03/12/17 03/12/17 03/13/17 15:00 23:00 07:00 Intake Total 750 ml 830 ml 591 ml Output Total 850 ml 900 ml 650 ml Balance -100 ml -70 ml -59 ml Exam nad no mrg lungs clear abd soft no rashes Results Result Diagram: 03/13/17 0525 03/13/17 0525 Results 24 hrs Laboratory Tests Test 03/13/17 05:25 White Blood Count 6.7 Red Blood Count 3.83 L Hemoglobin 12.1 L Hematocrit 35.1 L Mean Corpuscular Volume 91.6 Mean Corpuscular Hemoglobin 31.6 Mean Corpuscular Hemoglobin Concent 34.5 Red Cell Distribution Width 13.4 Platelet Count 193 Mean Platelet Volume 10.1 Neutrophils % 58.1 Lymphocytes % 28.3 Monocytes % 11.0 Eosinophils % 1.9 Basophils % 0.4 Nucleated Red Blood Cells % 0.0 Neutrophils # (Manual) 3.9 Lymphocytes # 1.9 Monocytes # 0.7 Eosinophils # 0.1 Basophils # 0.0 Nucleated Red Blood Cells # 0.0 Sodium Level 138 Potassium Level 3.5 Chloride Level 103 Carbon Dioxide Level 27 Anion Gap 12 Blood Urea Nitrogen 12 Creatinine 0.76 Glucose Level 94 Calcium Level 8.2 L Medications Medications Current Medications Aspirin (Halfprin) 81 mg DAILY PO Last administered on 03/13/17t 09:33; Admin Dose 81 MG; Start 03/10/17 at 09:00 Ticagrelor (Brilinta) 90 mg BID PO Last administered on 03/13/17 09:33; Admin Dose 90 MG; Start 03/09/17 at 21:00 Acetaminophen (Tylenol Tab) 650 mg Q4H PRN PO NON-CARDIAC PAIN LEVEL 1-3 Last administered on 03/13/17 17:24; Admin Dose 650 MG; Start 03/09/17 at 14:30 Oxycodone/ Acetaminophen (Percocet (5/ 325)) 1 tab Q4H PRN PO REPORTED NON- CARDIAC PAIN 4-7; Start 03/09/17 at 14:30 Al Hydrox/Mg Hydrox/Simethicone (Mag-Al Plus) 30 ml Q4H PRN PO GASTROINTESTINAL UPSET; Start 03/09/17 at 14:30 Ondansetron HCl (Zofran Inj) 4 mg Q6H PRN IV NAUSEA AND/OR VOMITING; Start at 17:30 Acetaminophen (Tylenol Tab) 650 mg Q6H PRN PO PAIN LEVEL 1-3 OR FEVER; Start at 17:30 Acetaminophen/ Hydrocodone Bitart ([place] (5/325)) 1 tab Q6H PRN PO MODERATE PAIN LEVEL 4-6 Last administered on 03/13/17 17:31; Admin Dose 1 TAB; Start at 17:30 Morphine Sulfate (morphine) 2 mg Q4H PRN IV SEVERE PAIN LEVEL 7-10 Last administered on 03/10/17 06:55; Admin Dose 2 MG; Start 03/09/17 at 17:30 Docusate Sodium (Colace) 100 mg Q12H PRN PO CONSTIPATION; Start 03/09/17 at 17: 30 Magnesium Hydroxide (Milk Of Mag) 30 ml DAILY PRN PO CONSTIPATION; Start at 17:30 Sodium Biphosphate/ Sodium Phosphate (Fleet Enema) 133 ml DAILY PRN [place] CONSTIPATION; Start 03/09/17 at 17:30 Heparin Sodium (Porcine) (Heparin (5000 Units/0.5 ml)) 5,000 unit Q12 SC Last administered on 03/13/17 09:33; Admin Dose 5,000 UNIT; Start 03/09/17 at 21:00 Lorazepam (Ativan) 0.5 mg Q6H PRN PO ANXIETY; Start 03/09/17 at 17:30 Hydralazine HCl (Apresoline) 10 mg Q6H PRN IV ELEVATED BLOOD PRESSURE; Start at 17:30 Nitroglycerin (Nitroglycerin (Sl Tab) 0.4 Mg) 1 tab Q5M PRN SL ANGINA Last administered on 03/09/17 18:27; Admin Dose 1 TAB; Start 03/09/17 at 17:30 Atorvastatin Calcium (Lipitor) 80 mg HS PO Last administered on 03/12/17 20:01 ; Admin Dose 80 MG; Start 03/10/17 at 21:00 Carvedilol (Coreg) 6.25 mg BID PO ; Start 03/13/17 at 21:00 CHIKI COLON MD Mar 13, 2017 18:17
[2017-03-13] MEDS: LISINOPRIL 5 MG TAB PO SCH (20:28)
[2017-03-13] MEDS: ATORVASTATIN 80 MG TAB PO SCH (20:29)
[2017-03-14] VITALS (12 sets, daily range): BP systolic 98–114; BP diastolic 62–73; PULSE 95–113; RESP 18–20
[2017-03-14] MEDS: LISINOPRIL 5 MG TAB PO SCH ×3 (09:00→20:35)
[2017-03-14 09:26] LABS: BASOPHILS % 0.3 % (0.0-2.0); EOSINOPHILS # 0.1 10^3/ul (0.0-0.5); EOSINOPHILS % 1.1 % (0.0-7.0); HEMATOCRIT 37.1 % (42.0-52.0); HEMOGLOBIN 12.9 g/dl (14.0-18.0); LYMPHOCYTES # 1.4 10^3/ul (0.8-2.9); LYMPHOCYTES % 16.4 % (15.0-51.0); MEAN CORPUSCULAR HGB CONC 34.8 g/dl (32.0-37.0); MEAN CORPUSCULAR VOLUME 92.1 fl (82.0-101.0); MEAN PLATELET VOLUME 9.9 fl (7.4-10.4); MONOCYTE # 0.8 10^3/ul (0.3-0.9); NEUTROPHILS % 72.6 % (39.0-77.0); PLATELET COUNT 229 10^3/UL (140-415); RED BLOOD COUNT 4.03 10^6/ul (4.70-6.10); RED CELL DISTRIBUTION WIDTH 13.2 % (11.5-14.5); WHITE BLOOD COUNT 8.7 10^3/ul (4.8-10.8)
[2017-03-14] MEDS: ASPIRIN (EC) 81 MG TAB PO SCH (09:38)
[2017-03-14] MEDS: TICAGRELOR 90 MG TABLET PO SCH ×2 (09:40→20:37)
[2017-03-14 10:41] LABS: CALCIUM 8.8 mg/dl (8.4-10.2); CREATININE 0.73 mg/dl (0.61-1.24); POTASSIUM 4.1 mmol/L (3.5-5.1)
--- NOTE | 2017-03-14 17:16 | PN ---
Date/Time of Note Date/Time of Note DATE: 03/14/17 TIME: 17:15 Assessment/Plan VTE Prophylaxis VTE Prophylaxis Intervention: SCD's Lines/Catheters IV Catheter Type (from Nrs): [place] Urinary Cath still in place: No Assessment/Plan Assessment/Plan 47 yo male presented with chest pain, found to have STEMI, sp PCI #STEMI sp PCI -DAPT, BP control, statin -talked to cards abt HR, will dig load and start on daily digoxin smoking cessation previously advised dw cardiology, ok to dc in AM if HR better Subjective 24 Hr Interval Summary Free Text/Dictation Pt feels well. HR still a little high Exam/Review of Systems Vital Signs Vitals Vital Signs Date Time Temp Pulse Resp B/P Pulse Ox O2 Delivery O2 Flow Rate FiO2 03/14/17 17:07 98.0 75 18 102/62 98 03/13/17 13:00 Room Air 03/13/17 01:53 21 Intake and Output 03/13/17 03/13/17 03/14/17 15:00 23:00 07:00 Intake Total 600 ml 240 ml Output Total 1450 ml Balance -850 ml 240 ml Exam nad no mrg lungs clear abd soft no rashes Results Result Diagram: 03/14/17 0900 03/14/17 0900 Results 24 hrs Laboratory Tests Test 03/14/17 09:00 White Blood Count 8.7 # Red Blood Count 4.03 L Hemoglobin 12.9 L Hematocrit 37.1 L Mean Corpuscular Volume 92.1 Mean Corpuscular Hemoglobin 32.0 Mean Corpuscular Hemoglobin Concent 34.8 Red Cell Distribution Width 13.2 Platelet Count 229 Mean Platelet Volume 9.9 Neutrophils % 72.6 Lymphocytes % 16.4 Monocytes % 9.0 Eosinophils % 1.1 Basophils % 0.3 Nucleated Red Blood Cells % 0.0 Neutrophils # (Manual) 6.3 Lymphocytes # 1.4 Monocytes # 0.8 Eosinophils # 0.1 Basophils # 0.0 Nucleated Red Blood Cells # 0.0 Sodium Level 138 Potassium Level 4.1 Chloride Level 105 Carbon Dioxide Level 24 Anion Gap 13 Blood Urea Nitrogen 16 Creatinine 0.73 Glucose Level 102 Calcium Level 8.8 Medications Medications Current Medications Aspirin (Halfprin) 81 mg DAILY PO Last administered on 03/14/17t 09:38; Admin Dose 81 MG; Start 03/10/17 at 09:00 Ticagrelor (Brilinta) 90 mg BID PO Last administered on 03/14/17 09:40; Admin Dose 90 MG; Start 03/09/17 at 21:00 Acetaminophen (Tylenol Tab) 650 mg Q4H PRN PO NON-CARDIAC PAIN LEVEL 1-3 Last administered on 03/13/17 17:24; Admin Dose 650 MG; Start 03/09/17 at 14:30 Oxycodone/ Acetaminophen (Percocet (5/ 325)) 1 tab Q4H PRN PO REPORTED NON- CARDIAC PAIN 4-7; Start 03/09/17 at 14:30 Al Hydrox/Mg Hydrox/Simethicone (Mag-Al Plus) 30 ml Q4H PRN PO GASTROINTESTINAL UPSET; Start 03/09/17 at 14:30 Ondansetron HCl (Zofran Inj) 4 mg Q6H PRN IV NAUSEA AND/OR VOMITING; Start at 17:30 Acetaminophen (Tylenol Tab) 650 mg Q6H PRN PO PAIN LEVEL 1-3 OR FEVER; Start at 17:30 Acetaminophen/ Hydrocodone Bitart ([place] (5/325)) 1 tab Q6H PRN PO MODERATE PAIN LEVEL 4-6 Last administered on 03/13/17 17:31; Admin Dose 1 TAB; Start at 17:30 Morphine Sulfate (morphine) 2 mg Q4H PRN IV SEVERE PAIN LEVEL 7-10 Last administered on 03/10/17 06:55; Admin Dose 2 MG; Start 03/09/17 at 17:30 Docusate Sodium (Colace) 100 mg Q12H PRN PO CONSTIPATION; Start 03/09/17 at 17: 30 Magnesium Hydroxide (Milk Of Mag) 30 ml DAILY PRN PO CONSTIPATION; Start at 17:30 Sodium Biphosphate/ Sodium Phosphate (Fleet Enema) 133 ml DAILY PRN [place] CONSTIPATION; Start 03/09/17 at 17:30 Lorazepam (Ativan) 0.5 mg Q6H PRN PO ANXIETY; Start 03/09/17 at 17:30 Hydralazine HCl (Apresoline) 10 mg Q6H PRN IV ELEVATED BLOOD PRESSURE; Start at 17:30 Nitroglycerin (Nitroglycerin (Sl Tab) 0.4 Mg) 1 tab Q5M PRN SL ANGINA Last administered on 03/09/17 18:27; Admin Dose 1 TAB; Start 03/09/17 at 17:30 Atorvastatin Calcium (Lipitor) 80 mg HS PO Last administered on 03/13/17 20:29 ; Admin Dose 80 MG; Start 03/10/17 at 21:00 Carvedilol (Coreg) 6.25 mg BID PO Last administered on 03/14/17 15:18; Admin Dose 6.25 MG; Start 03/13/17 at 21:00 Lisinopril (Zestril) 2.5 mg BID PO Last administered on 03/14/17 15:17; Admin Dose 2.5 MG; Start 03/13/17 at 21:00 Enoxaparin Sodium (Lovenox) 40 mg QPM SC ; Start 03/14/17 at 21:00 CHIKI COLON MD Mar 14, 2017 17:16
[2017-03-14] MEDS ORDERED: DIGOXIN 500 MCG INJ IV ONE (17:30)
[2017-03-14] MEDS ORDERED: VITAMIN A & D 5 GM OINT PACKET TOP ONE (19:21)
[2017-03-14] MEDS: ATORVASTATIN 80 MG TAB PO SCH (20:35)
[2017-03-14] MEDS ORDERED: ENOXAPARIN 40 MG/0.4 ML SYG SC SCH (21:00)
[2017-03-15] VITALS (8 sets, daily range): BP systolic 101–116; BP diastolic 57–77; PULSE 93–101; RESP 18–20
[2017-03-15] MEDS: TICAGRELOR 90 MG TABLET PO SCH (08:29)
[2017-03-15] MEDS: ASPIRIN (EC) 81 MG TAB PO SCH (08:29)
[2017-03-15] MEDS: LISINOPRIL 5 MG TAB PO SCH (08:30)
[2017-03-15 11:40] LABS: BASOPHIL # 0.1 10^3/ul (0.0-0.1); BASOPHILS % 0.6 % (0.0-2.0); EOSINOPHILS # 0.1 10^3/ul (0.0-0.5); EOSINOPHILS % 1.4 % (0.0-7.0); HEMATOCRIT 40.3 % (42.0-52.0); HEMOGLOBIN 13.9 g/dl (14.0-18.0); LYMPHOCYTES # 1.8 10^3/ul (0.8-2.9); LYMPHOCYTES % 18.5 % (15.0-51.0); MEAN CORPUSCULAR HEMOGLOBIN 32.3 pg (29.0-33.0); MEAN CORPUSCULAR HGB CONC 34.5 g/dl (32.0-37.0); MEAN CORPUSCULAR VOLUME 93.7 fl (82.0-101.0); MEAN PLATELET VOLUME 9.8 fl (7.4-10.4); MONOCYTE # 0.9 10^3/ul (0.3-0.9); NEUTROPHILS % 69.6 % (39.0-77.0); PLATELET COUNT 279 10^3/UL (140-415); RED CELL DISTRIBUTION WIDTH 13.2 % (11.5-14.5); WHITE BLOOD COUNT 9.7 10^3/ul (4.8-10.8)
[2017-03-15 12:08] LABS: CALCIUM 9.3 mg/dl (8.4-10.2); CREATININE 0.75 mg/dl (0.61-1.24); POTASSIUM 3.5 mmol/L (3.5-5.1)
[2017-03-15] MEDS ORDERED: DIGO125T PO (12:21)
[2017-03-15] MEDS ORDERED: CARV3.1260 PO (12:21)
[2017-03-15] MEDS ORDERED: LISI-313 PO (12:21)
[2017-03-15] MEDS ORDERED: ATOR80TA75 PO (12:21)
[2017-03-15] MEDS ORDERED: TICA90TA PO (12:21)
[2017-03-15] MEDS ORDERED: ASPI-664 PO (12:21)
--- NOTE | 2017-03-15 12:30 | DS ---
Date/Time of Note Date/Time of Note DATE: 03/15/17 TIME: 12:26 Discharge Summary Admission/Discharge Info Admit Date/Time Mar 09, 2017 at 13:15 Discharge Date/Time Discharge Diagnosis STEMI Patient Condition: Stable Consults cardiology Procedures 8.31 [facility] Operation/Procedure Performed 1.[facility] 2.PTCA/stent x 2 to LAD 9.2 TTE Conclusions 1. Normal left ventricular cavity size. Moderate asymmetric septal hypertrophy. Severe left ventricular systolic dysfunction. Ejection fraction is visually estimated at 20 %. No left ventricular outflow tract gradient at rest. Multiple segmental wall motion abnormalities. These segments of the LV are hypokinetic mid anterior segment and apical lateral segment. . These segments of the LV are akinetic apical septum segment, Apical inferior segment, apical lateral segment, apical anterior segment, mid anterior segment and anteroseptum mid segment. Hx of Present Illness 47-year-old male past medical history of hypertension, dyslipidemia, prior tobacco intake, who initially presented with complaints of substernal chest pain described as a pressure-like sensation while doing some work earlier today. The patient presents today with associated post shortness of breath and subsequently 911 was called. Stated the pain was substernal in nature, radiated to the left arm, increasing in severity. Patient decided to call 911, and a STEMI was called en route. The patient's EKG was concerning for ST elevation [place]. Upon arrival, the patient appears diaphoretic with ongoing chest pain and shortness of breath. EKG performed in the ER was concerning for possible anterior [place] with heart rate of 81. The patient received aspirin and take emergently to the cardiac phlebotomy lab assistant for left heart catheterization. 2 cardiac stents were placed to the LAD, and now patient is in the intensive care unit recovering. Hospital Course Pt admitted for STEMI, taken to phlebotomy lab assistant on date of admission, underwent PCI. TTE 2 days post cath with depressed EF. Pt started on post [place] drug regimen including DAPT, bb, acei, statin. HR a little on the high side so digoxin added. Pt to have close outpatient cardiology follow up Home Meds Active Scripts Aspirin* (Aspirin* EC) 81 Mg Tablet., 81 MG PO DAILY for 30 Days, #30 Prov:CHIKI COLON MD 03/15/17 Lisinopril* (Lisinopril*) 5 Mg Tablet, 2.5 MG PO BID for 30 Days, #60 TAB Prov:CHIKI COLON MD 03/15/17 Digoxin* (Digitek*) 125 Mcg Tablet, 0.125 MG PO DAILY@13 for 30 Days, #30 TAB Prov:CHIKI COLON MD 03/15/17 Carvedilol* (Carvedilol*) 3.125 Mg Tablet, 3.125 MG PO BID for 30 Days, #60 TAB Prov:CHIKI COLON MD 03/15/17 Atorvastatin* (Atorvastatin*) 80 Mg Tablet, 80 MG PO HS for 30 Days, #30 TAB Prov:CHIKI COLON MD 03/15/17 Ticagrelor* (Brilinta*) 90 Mg Tablet, 90 MG PO BID for 30 Days, #60 TAB Prov:CHIKI COLON MD 03/15/17 Follow-up Plan cardiology within 2 weeks Primary Care Provider Care Physician No Primary Time spent on discharge: > 30 minutes Pending Labs Laboratory Tests Test 03/15/17 11:10 White Blood Count 9.710^3/ul (4.8-10.8) Red Blood Count 4.3010^6/ul (4.70-6.10) Hemoglobin 13.9g/dl (14.0-18.0) Hematocrit 40.3% (42.0-52.0) Mean Corpuscular Volume 93.7fl (82.0-101.0) Mean Corpuscular Hemoglobin 32.3pg (29.0-33.0) Mean Corpuscular Hemoglobin Concent 34.5g/dl (32.0-37.0) Red Cell Distribution Width 13.2% (11.5-14.5) Platelet Count 05994^3/UL (140-415) Mean Platelet Volume 9.8fl (7.4-10.4) Neutrophils % 69.6% (39.0-77.0) Lymphocytes % 18.5% (15.0-51.0) Monocytes % 9.0% (0.0-11.0) Eosinophils % 1.4% (0.0-7.0) Basophils % 0.6% (0.0-2.0) Nucleated Red Blood Cells % 0.0/100WBC (0.0-0.0) Neutrophils # (Manual) 6.710^3/ul (1.7-7.5) Lymphocytes # 1.810^3/ul (0.8-2.9) Monocytes # 0.910^3/ul (0.3-0.9) Eosinophils # 0.110^3/ul (0.0-0.5) Basophils # 0.110^3/ul (0.0-0.1) Nucleated Red Blood Cells # 0.010^3/ul (0.0-0.0) Sodium Level 136mmol/L (135-144) Potassium Level 3.5mmol/L (3.5-5.1) Chloride Level 99mmol/L (97-110) Carbon Dioxide Level 27mmol/L (21-31) Anion Gap 14 (8-16) Blood Urea Nitrogen 17mg/dl (7-20) Creatinine 0.75mg/dl (0.61-1.24) Glucose Level 96mg/dl (70-220) Calcium Level 9.3mg/dl (8.4-10.2) Copies To: CC: OSVALDO VERAS ELLEN MD Mar 15, 2017 12:30
--- NOTE | 2017-03-15 12:41 | PDOCDIS ---
Discharge Instructions DIAGNOSIS Discharge Diagnosis STEMI CONDITION Patient Condition: Stable HOME CARE INSTRUCTIONS: Diet Instructions: Low Fat /CholesterolSpecial Diet: LOW CHOL, LOW FAT ACTIVITY: Activity Restrictions: No Restrictions Bathing Restrictions: Shower FOLLOW UP/APPOINTMENTS Follow-up Plan Take all your heart medications and follow up with the heart doctor within [address] Walton Office Address [address] [place] [id number] Office CHIKI COLON MD Mar 15, 2017 12:41
[2017-03-15] MEDS ORDERED: DIGOXIN 0.125 MG TAB PO SCH (13:00)
--- NOTE | 2017-03-15 14:52 | CONS ---
Date/Time of Note Date/Time of Note DATE: 03/15/17 TIME: 14:47 Assessment/Plan Assessment/Plan Chief Complaint/Hosp Course IMPRESSION: 1. Acute ST-elevation myocardial infarction s/p PTCA/stent x 2 to ostal/ proximal LAD with G[place]O 2. Chest pain-resolved s/ptca/stent 3. Hypertension. 4. Dyslipidemia. 5. Remote tobacco. 6. Tachycardia-S tach now improved 7. cardiomyopathy with low ef by echo s/p stemi REcc: -Tele -Trend cardiac enzymes -Continue asa/brilinta and will need script at D/C -Contiue BB/statin/ACEI/digoxin -Follow volume status -D/C planning Problems: Consultation Date/Type/Reason Admit Date/Time Mar 09, 2017 at 13:15 Initial Consult Date 03/09/2017 Type of Consultation: cardiology Reason for Consultation STEMI Referring Provider: ANTWON FUCHS Exam/Review of Systems Vital Signs Vitals Vital Signs Date Time Temp Pulse Resp B/P Pulse Ox O2 Delivery O2 Flow Rate FiO2 03/15/17 12:00 93 03/15/17 11:28 98.1 18 102/68 100 03/13/17 13:00 Room Air 03/13/17 01:53 21 Intake and Output 03/14/17 03/14/17 03/15/17 15:00 23:00 07:00 Intake Total 1580 ml Output Total 1000 ml Balance 580 ml Exam Review of Systems: CONSTITUTIONAL: No fevers, chills. PULMONARY: No sob CARDIOVASCULAR: No chest pain/palpitations GASTROINTESTINAL: No nausea/vomiting. GENITOURINARY: No hematuria/dysuria. MUSCULOSKELETAL: No myagias/arthalgias. PSYCHIATRIC: The patient denies depression. NEUROLOGIC: No weakness Constitutional: alert Psych: no complaints Head: normocephalic ENMT: mucosa pink and moist Neck: jvd (8 cm water), supple Respiratory: clear to auscultation Cardiovascular: regular rate and rhythm Gastrointestinal: non-tender, soft Musculoskeletal: muscle tone (normal) Extremities: edema (none) Neurological: other (No focal deficits) Results Result Diagram: 03/15/17 1110 03/15/17 1110 Results 24 hrs Laboratory Tests Test 03/15/17 11:10 White Blood Count 9.7 Red Blood Count 4.30 L Hemoglobin 13.9 L Hematocrit 40.3 L Mean Corpuscular Volume 93.7 Mean Corpuscular Hemoglobin 32.3 Mean Corpuscular Hemoglobin Concent 34.5 Red Cell Distribution Width 13.2 Platelet Count 279 # Mean Platelet Volume 9.8 Neutrophils % 69.6 Lymphocytes % 18.5 Monocytes % 9.0 Eosinophils % 1.4 Basophils % 0.6 Nucleated Red Blood Cells % 0.0 Neutrophils # (Manual) 6.7 Lymphocytes # 1.8 Monocytes # 0.9 Eosinophils # 0.1 Basophils # 0.1 Nucleated Red Blood Cells # 0.0 Sodium Level 136 Potassium Level 3.5 Chloride Level 99 Carbon Dioxide Level 27 Anion Gap 14 Blood Urea Nitrogen 17 Creatinine 0.75 Glucose Level 96 Calcium Level 9.3 Medications Medications Current Medications Aspirin (Halfprin) 81 mg DAILY PO Last administered on 03/15/17 08:29; Admin Dose 81 MG; Start 03/10/17 at 09:00 Ticagrelor (Brilinta) 90 mg BID PO Last administered on 03/15/17 08:29; Admin Dose 90 MG; Start 03/09/17 at 21:00 Acetaminophen (Tylenol Tab) 650 mg Q4H PRN PO NON-CARDIAC PAIN LEVEL 1-3 Last administered on 03/13/17 17:24; Admin Dose 650 MG; Start 03/09/17 at 14:30 Oxycodone/ Acetaminophen (Percocet (5/ 325)) 1 tab Q4H PRN PO REPORTED NON- CARDIAC PAIN 4-7; Start 03/09/17 at 14:30 Al Hydrox/Mg Hydrox/Simethicone (Mag-Al Plus) 30 ml Q4H PRN PO GASTROINTESTINAL UPSET; Start 03/09/17 at 14:30 Ondansetron HCl (Zofran Inj) 4 mg Q6H PRN IV NAUSEA AND/OR VOMITING; Start at 17:30 Acetaminophen (Tylenol Tab) 650 mg Q6H PRN PO PAIN LEVEL 1-3 OR FEVER; Start at 17:30 Acetaminophen/ Hydrocodone Bitart ([place] (5/325)) 1 tab Q6H PRN PO MODERATE PAIN LEVEL 4-6 Last administered on 03/13/17 17:31; Admin Dose 1 TAB; Start at 17:30 Morphine Sulfate (morphine) 2 mg Q4H PRN IV SEVERE PAIN LEVEL 7-10 Last administered on 03/10/17 06:55; Admin Dose 2 MG; Start 03/09/17 at 17:30 Docusate Sodium (Colace) 100 mg Q12H PRN PO CONSTIPATION; Start 03/09/17 at 17: 30 Magnesium Hydroxide (Milk Of Mag) 30 ml DAILY PRN PO CONSTIPATION; Start at 17:30 Sodium Biphosphate/ Sodium Phosphate (Fleet Enema) 133 ml DAILY PRN [place] CONSTIPATION; Start 03/09/17 at 17:30 Lorazepam (Ativan) 0.5 mg Q6H PRN PO ANXIETY; Start 03/09/17 at 17:30 Hydralazine HCl (Apresoline) 10 mg Q6H PRN IV ELEVATED BLOOD PRESSURE; Start at 17:30 Nitroglycerin (Nitroglycerin (Sl Tab) 0.4 Mg) 1 tab Q5M PRN SL ANGINA Last administered on 03/09/17 18:27; Admin Dose 1 TAB; Start 03/09/17 at 17:30 Atorvastatin Calcium (Lipitor) 80 mg HS PO Last administered on 03/14/17 20:35 ; Admin Dose 80 MG; Start 03/10/17 at 21:00 Lisinopril (Zestril) 2.5 mg BID PO Last administered on 03/15/17 08:30; Admin Dose 2.5 MG; Start 03/13/17 at 21:00 Enoxaparin Sodium (Lovenox) 40 mg QPM SC Last administered on 03/14/17 20:37; Admin Dose 40 MG; Start 03/14/17 at 21:00 Digoxin (Digoxin) 0.125 mg DAILY@13 PO Last administered on 03/15/17 12:46; Admin Dose 0.125 MG; Start 03/15/17 at 13:00 Carvedilol (Coreg) 3.125 mg BID PO Last administered on 03/15/17 08:29; Admin Dose 3.125 MG; Start 03/14/17 at 21:00 OSVALDO VERAS Mar 15, 2017 14:52
== END 2017-03-15 15:20 | disposition home or self-care (01) | DRG 247 ==
LOC: E/R 12:51 → ICU 13:15 → TEL 03-13 13:35
PROVIDERS: ADMIT Internal Medicine; ATTEND Hospitalist
PROC: B211YZZ Fluoroscopy of Multiple Coronary Arteries using Other Contrast (ICD-10-PCS; 2017-03-09)
PROC: 027035Z Dilation of Coronary Artery, One Artery with Two Drug-eluting Intraluminal Devices, Percutaneous Approach (ICD-10-PCS; principal; 2017-03-09 13:00)
PROC: 4A023N7 Measurement of Cardiac Sampling and Pressure, Left Heart, Percutaneous Approach (ICD-10-PCS; 2017-03-09 13:00)
DX: I21.02 ST elevation (STEMI) myocardial infarction involving left anterior descending coronary artery (principal); I10 Essential (primary) hypertension; I25.10 Atherosclerotic heart disease of native coronary artery without angina pectoris; E78.5 Hyperlipidemia, unspecified; I25.5 Ischemic cardiomyopathy; R00.0 Tachycardia, unspecified; Z87.891 Personal history of nicotine dependence
CPT/HCPCS: 36415; 71010; 80048; 80061; 80306; 80307; 82550; 82553; 83036; 83735; 84100; 84439; 84443; 84484; 85025; 87040; 87081; 93005; 93306; 93458; C1725; C1769; C1887; C9606; J0583; J1644; J1650; J2250; J2270; J2405; J3010; J3480; J7030